=== PATIENT | male | born 1940 | race Caucasian/White ===

== ENCOUNTER 2017-09-09 12:13 | Inpatient (IN) | payer OTHER, MEDICARE ==
[~2017-09-09] VITALS: Ht 182.9 cm; Wt 87.9 kg
[~2017-09-09 12:13] MED LIST: 1-ME1LIQ PO; CARB25TA PO
[2017-09-09 12:14] VITALS: BP 124/78; PULSE 70; RESP 24; TEMP 102.8; O2SAT 90
[2017-09-09 12:37] VITALS: BP 135/66; PULSE 92; RESP 18; TEMP 99.6; O2SAT 95
[2017-09-09] MEDS ORDERED: HYDR-3801 PO (12:44)
[2017-09-09] MEDS ORDERED: LOSA25TA PO (12:44)
[2017-09-09] MEDS ORDERED: CARB25TA9 PO (12:44)
[2017-09-09] MEDS ORDERED: MELO7.5T27 PO (12:44)
[2017-09-09] MEDS ORDERED: ASPI-516 CHEW (12:44)
[2017-09-09] MEDS ORDERED: AMLO10TA2 PO (12:44)
[2017-09-09] MEDS ORDERED: CYCL5TAB PO (12:44)
[2017-09-09] MEDS ORDERED: ACETAMINOPHEN 325 MG TAB PO ONE (12:45)
[2017-09-09] MEDS ORDERED: SODIUM CHLOR 0.9% 1000 ML INJ 1,000 ML IV SCH (12:45)
[2017-09-09] MEDS ORDERED: SODIUM CHLORIDE 0.9% FLUSH 10 ML FLUSH IV FLUSH PRN ×2 (12:45→15:15)
--- NOTE | 2017-09-09 12:53 | PD ---
HPI Chief Complaint: Fever Time Seen by Provider: 12:21 Travel History International Travel<30 days: No Contact w/Intl Traveler<30days: No Traveled to known affect area: No History of Present Illness HPI The patient is a 76-year-old male who presents to the emergency department with his for altered mental status. The states the patient started to have a change in mental status over last weekend. She then states he developed a cough and some nasal congestion. The patient's awakened this morning and noticed that there was nasal polyp for the floor and the chairs removed away from the table, she states it looked like a "tornado hit the living room ". The states the patient has had a change in mental status or last several days, will walk out to the garage is to the bathroom, when he is attempting to use the restroom. The patient does have a history of Parkinson's disease and dementia which seems to progressing. She then noted the patient had a fever upon presentation to the emergency department. The patient is a somewhat limited a poor historian, he is oriented person, but not location. Most of the history is obtained from the who is at bedside. PFSH Past Medical History Arthritis: Yes (OA) Cancer: No Cardiovascular Problems: Yes (HTN) Diabetes: No Endocrine: No Gastrointestinal Disorders: Yes (reflux) Genitourinary: No Hepatitis: No Hiatal Hernia: No Hypertension: Yes Immune Disorder: No Musculoskeletal: Yes (arthritis) Neurologic: Yes (parkinsons) Parkinson's Disease: Yes Psychiatric: No Respiratory: No Thyroid Disease: No Past Surgical History Eye Surgery: Yes (eye surgery) Joint Replacement: Yes (right knee) Oral Surgery: Yes (removal front tooth) Other Surgery: Yes Social History Alcohol Use: Yes Tobacco Use: Yes Substance Use: Yes ([place] ) Allergies-Medications (Allergen,Severity, Reaction): Coded Allergies: No Known Allergies (Unverified Allergy, Unknown, 09/09/17) Reported Meds & Prescriptions Reported Meds & Active Scripts Active Reported Aspirin 81 Mg Chew 81 Mg CHEW DAILY Amlodipine (Amlodipine Besylate) 10 Mg Tab 10 Mg PO DAILY Meloxicam 7.5 Mg Tab 7.5 Mg PO DAILY Flexeril (Cyclobenzaprine HCl) 5 Mg Tab 5 Mg PO HS Losartan (Losartan Potassium) 25 Mg Tab 25 Mg PO DAILY Carbidopa-Levodopa 25-100 Mg Tab 1 Tab PO Q3HR Hydralazine (Hydralazine HCl) 100 Mg Tab 100 Mg PO BID Take with meals Review of Systems Except as stated in HPI: all other systems reviewed are Neg General / Constitutional: Positive: Fever HENT: No: Lightheadedness Cardiovascular: No: Chest Pain or Discomfort Respiratory: Positive: Cough, No: Shortness of Breath Gastrointestinal: No: Nausea, Vomiting, Abdominal Pain Genitourinary: No: Dysuria Musculoskeletal: No: Myalgias Neurologic: Positive: Change in Mentation, Other (history of Parkinson's disease) Physical Exam Narrative GENERAL: Awake, somewhat lethargic, 76-year-old male who appears his stated age. SKIN: Focused skin assessment warm/dry. HEAD: Atraumatic. Normocephalic. EYES: Pupils equal and round. No scleral icterus. No injection or drainage. ENT: No nasal bleeding or discharge. Slightly dry mucous membranes. NECK: Trachea midline. No JVD. CARDIOVASCULAR: Regular rate and rhythm. No murmur appreciated. RESPIRATORY: No accessory muscle use. Diminished in the bases with brows in the right lower lobe. GASTROINTESTINAL: Abdomen soft, non-tender, nondistended. No rebound tenderness. MUSCULOSKELETAL: No obvious deformities. No clubbing. No cyanosis. No edema. NEUROLOGICAL: Awake, somewhat lethargic. Resting tremor noted. Follows simple commands. Oriented to person but not location or year. PSYCHIATRIC: Appears confused. Data Data Last Documented VS Vital Signs Date Time Temp Pulse Resp B/P (MAP) Pulse Ox O2 Delivery O2 Flow Rate FiO2 09/09/17 17:52 94 16 202/96 (131) 95 Room Air 09/09/17 13:59 100.3 Orders Orders Electrocardiogram (09/09/17 12:45) Ammonia (09/09/17 12:45) Complete Blood Count With Diff (09/09/17 12:45) Comprehensive Metabolic Panel (09/09/17 12:45) Creatine Kinase (Cpk) (09/09/17 12:45) Prothrombin Time / Inr (Pt) (09/09/17 12:45) Act Partial Throm Time (Ptt) (09/09/17 12:45) Troponin I (09/09/17 12:45) Thyroid Stimulating Hormone (09/09/17 12:45) Urinalysis - C+S If Indicated (09/09/17 12:45) Lactic Acid Sepsis Protocol (09/09/17 12:45) Blood Culture (09/09/17 12:45) Chest, Single Ap (09/09/17 12:45) Ct Brain W/O Iv Contrast(Rout) (09/09/17 12:45) Blood Glucose (09/09/17 12:45) Ecg Monitoring (09/09/17 12:45) Iv Access Insert/Monitor (09/09/17 12:45) Oximetry (09/09/17 12:45) Sodium Chloride 0.9% Flush (Ns Flush) (09/09/17 12:45) Sodium Chlor 0.9% 1000 Ml Inj (Ns 1000 M (09/09/17 12:45) Acetaminophen (Tylenol) (09/09/17 12:45) Cath For Specimen (09/09/17 12:45) Influenzae A/B Antigen (09/09/17 12:45) CKMB (09/09/17 13:01) CKMB% (09/09/17 13:01) Ceftriaxone Inj (Rocephin Inj) (09/09/17 14:15) Lumbar Puncture (09/09/17 ) Vital Signs (Adult) .On admission (09/09/17 14:15) Notify Radiology (09/09/17 14:15) Csf Cell Count + Differential (09/09/17 14:16) Glucose, Csf (09/09/17 14:16) Total Protein, Csf (09/09/17 14:16) Csf Culture And Gram Stain (09/09/17 14:16) (Hub Use Only)Inp Phy Cons/Ref (09/09/17 ) Csf Hsv I/Ii Dna,Pcr (09/09/17 14:48) Acyclovir Inj (Zovirax Inj) (09/09/17 15:00) Ceftriaxone Inj (Rocephin Inj) (09/10/17 02:00) Vancomycin Consult Pharmacy (Vancomycin (09/09/17 15:15) Admit To Inpatient (09/09/17 ) Vital Signs (Adult) Q4H (09/09/17 15:14) Activity Bed Rest (09/09/17 15:14) Bedside Glucose ZANE.CSUGAR (09/09/17 15:14) Diet Heart Healthy (09/09/17 Dinner) Sodium Chlor 0.9% 1000 Ml Inj (Ns 1000 M (09/09/17 15:14) Sodium Chloride 0.9% Flush (Ns Flush) (09/09/17 15:15) Sodium Chloride 0.9% Flush (Ns Flush) (09/09/17 21:00) Comprehensive Metabolic Panel (09/10/17 06:00) Complete Blood Count With Diff (09/10/17 06:00) Pt Request For Service (09/09/17 15:14) Scd Bilateral/Knee High ZANE.BID (09/09/17 15:14) Naloxone Inj (Narcan Inj) (09/09/17 15:15) Docusate Sodium-Senna (Marisabel-Colace) (09/09/17 21:00) Magnesium Hydroxide Liq (Milk Of Magnesi (09/09/17 15:15) Sennosides (Senokot) (09/09/17 15:15) Bisacodyl Supp (Dulcolax Supp) (09/09/17 15:15) Lactulose Liq (Lactulose Liq) (09/09/17 15:15) Inpatient Certification (09/09/17 ) Consult Neurology (09/09/17 ) Amlodipine (Norvasc) (09/10/17 09:00) Hydralazine (Apresoline) (09/09/17 21:00) Losartan (Cozaar) (09/10/17 09:00) Carbidopa-Levodopa 25-100 Mg (Sinemet 25 (09/09/17 22:00) (Hub Use Only)Inp Phy Cons/Ref (09/09/17 ) Acyclovir Inj (Zovirax Inj) (09/10/17 01:00) Drug Screen, Random Urine (09/09/17 15:39) Vancomycin Inj (Vancomycin Inj) (09/09/17 17:00) Vital Signs (Adult) .As directed (09/09/17 16:06) Activity Bed Rest (09/09/17 16:06) Notify Radiology (09/09/17 16:06) ^ Encourage Fluids (09/09/17 16:06) Anticoagulant Alert (09/09/17 16:06) Labs Laboratory Tests Test 09/09/17 13:00 1/12/18 13:01 09/09/17 13:07 09/09/17 15:57 Urine Color YELLOW Urine Turbidity HAZY Urine pH 5.5 Urine Specific [place] 1.024 Urine Protein 30 mg/dL Urine Glucose (UA) NEG mg/dL Urine Ketones TRACE mg/dL Urine Occult Blood NEG Urine Nitrite NEG Urine Bilirubin NEG Urine Urobilinogen 2.0 MG/DL Urine Leukocyte Esterase NEG Urine RBC 1 /hpf Urine WBC 2 /hpf Urine Hyaline Casts 6 /lpf Urine Mucus FEW /lpf Microscopic Urinalysis Comment CATH-CULT NOT IND White Blood Count 7.4 TH/MM3 Red Blood Count 3.82 MIL/MM3 Hemoglobin 11.8 GM/DL Hematocrit 34.4 % Mean Corpuscular Volume 90.1 FL Mean Corpuscular Hemoglobin 30.9 PG Mean Corpuscular Hemoglobin Concent 34.3 % Red Cell Distribution Width 13.5 % Platelet Count 182 TH/MM3 Mean Platelet Volume 8.1 FL Neutrophils (%) (Auto) 87.2 % Lymphocytes (%) (Auto) 6.5 % Monocytes (%) (Auto) 5.8 % Eosinophils (%) (Auto) 0.1 % Basophils (%) (Auto) 0.4 % Neutrophils # (Auto) 6.5 TH/MM3 Lymphocytes # (Auto) 0.5 TH/MM3 Monocytes # (Auto) 0.4 TH/MM3 Eosinophils # (Auto) 0.0 TH/MM3 Basophils # (Auto) 0.0 TH/MM3 CBC Comment DIFF FINAL Differential Comment Prothrombin Time 10.8 SEC Prothromb Time International Ratio 1.1 RATIO Activated Partial Thromboplast Time 27.0 SEC Blood Urea Nitrogen 23 MG/DL Creatinine 1.63 MG/DL Random Glucose 88 MG/DL Total Protein 7.2 GM/DL Albumin 3.8 GM/DL Calcium Level 8.4 MG/DL Alkaline Phosphatase 66 U/L Aspartate Amino Transf (AST/SGOT) 32 U/L Alanine Aminotransferase (ALT/SGPT) 28 U/L Total Bilirubin 0.6 MG/DL Sodium Level 142 MEQ/L Potassium Level 3.9 MEQ/L Chloride Level 106 MEQ/L Carbon Dioxide Level 27.8 MEQ/L Anion Gap 8 MEQ/L Estimat Glomerular Filtration Rate 41 ML/MIN Total Creatine Kinase 510 U/L Creatine Kinase MB 2.0 NG/ML Creatine Kinase MB % 0.4 % Troponin I 0.03 NG/ML Thyroid Stimulating Hormone 3rd Gen 0.958 uIU/ML Lactic Acid Level 1.2 mmol/L Ammonia 35 MCMOL/L CSF Volume (Tube 1) 2.9 ML CSF Supernatant Color (tube 1) CLEAR CSF Gross Blood (Tube 1) 0 CSF Volume (Tube 2) 3.2 ML CSF Supernatant Color (tube 2) CLEAR CSF Gross Blood (Tube 2) 0 CSF Volume (Tube 3) 2.5 ML CSF Supernatant Color (tube 3) CLEAR CSF Gross Blood (Tube 3) 0 CSF Volume (Tube 4) 3.5 ML CSF Supernatant Color (tube 4) CLEAR CSF Gross Blood (Tube 4) 0 CSF WBC (Tube 4) 3 /MM3 CSF RBC (Tube 4) 3 /MM3 CSF Neutrophils 1 % CSF Lymphocytes 0 % CSF Glucose 53 MG/DL CSF Total Protein 60.7 MG/DL MDM Medical Decision Making Medical Screen Exam Complete: Yes Emergency Medical Condition: Yes Medical Record Reviewed: Yes Interpretation(s) EKG reveals sinus rhythm with frequent supraventricular premature complex. RSR prime in V1 with QRS of 122 ms, right bundle branch block. Differential Diagnosis Differential diagnosis includes sepsis, delirium, pneumonia, UTI, hyponatremia, subdural hemorrhage, CVA, intracranial hemorrhage, medication side effect. Narrative Course IV was established, labs are drawn and sent, and the patient was placed on cardiac telemetry monitoring and continuous pulse oximetry monitoring. EKG was ordered and interpreted. Chest x-ray was obtained. Lactic acid blood culture were sent to lab. The patient was administered Tylenol orally and IV fluids. Influenza screen was sent to lab. The patient's white count is unremarkable. Lactic acid is within normal limits. Creatinine is mildly elevated. Chest x- rays negative, patient did initially have a fever one or 2.3 and O2 sat of 90%. UA is unremarkable. The patient does have delirium with altered mental status and febrile illness, this could be viral etiology versus meningitis. Therefore, consult was placed through invasive radiology for lumbar puncture the patient was covered with Rocephin 2 g intravenously, vancomycin 1 g intravenously, and acyclovir 10 mg/kg intravenously. Blood cultures are pending , the patient will require admission until blood cultures are negative and micro -studies from CSF are negative. Therefore, the patient will be admitted to the on-call medical service. Sepsis Criteria SIRS Criteria (2 or more): Temp > 100.9 or < 96.8, RR > 20 or PaCO2 < 32 Criteria Outcome: Meets SIRS criteria Physician Communication Physician Communication The [facility] [employer] I discussed patient with Dr. Serrano who agrees with admission. Diagnosis Primary Impression: Febrile illness Additional Impressions: Delirium Altered mental status Qualified Codes: R41.0 - Disorientation, unspecified SIRS (systemic inflammatory response syndrome) Admitting Information Admitting Physician Requests: Admit Condition: Stable Alec White MD Sep 09, 2017 12:53
[2017-09-09 13:00] VITALS: PULSE 85; RESP 18; O2SAT 94
[2017-09-09 13:25] LABS: AUTOMATED NEUTROPHIL # 6.5 TH/MM3 (1.8-7.7); BASOPHIL % 0.4 % (0.0-2.0); EOSINOPHIL % 0.1 % (0.0-4.0); HEMATOCRIT 34.4 % (39.0-51.0); HEMOGLOBIN 11.8 GM/DL (13.0-17.0); LYMPH % 6.5 % (9.0-44.0); LYMPHOCYTE # 0.5 TH/MM3 (1.0-4.8); MEAN CELL VOLUME 90.1 FL (80.0-100.0); MEAN CORPUSCULAR HEMOGLOBIN 30.9 PG (27.0-34.0); MEAN CORPUSCULAR HGB CONC 34.3 % (32.0-36.0); MEAN PLATELET VOLUME 8.1 FL (7.0-11.0); MONO % 5.8 % (0.0-8.0); MONOCYTE # 0.4 TH/MM3 (0-0.9); NEUT % 87.2 % (16.0-70.0); PLATELET COUNT 182 TH/MM3 (150-450); RED BLOOD COUNT 3.82 MIL/MM3 (4.50-5.90); RED CELL DISTRIBUTION WIDTH 13.5 % (11.6-17.2); WHITE BLOOD COUNT 7.4 TH/MM3 (4.0-11.0)
[2017-09-09 13:34] LABS: INTERNATIONAL NORMALIZED RATIO 1.1 RATIO; PROTHROMBIN TIME - PATIENT 10.8 SEC (9.8-11.6)
[2017-09-09 13:38] LABS: ALBUMIN 3.8 GM/DL (3.4-5.0); ALT (GPT) 28 U/L (12-78); AST (GOT) 32 U/L (15-37); BICARBONATE 27.8 MEQ/L (21.0-32.0); BLOOD UREA NITROGEN 23 MG/DL (7-18); CALCIUM 8.4 MG/DL (8.5-10.1); CHLORIDE 106 MEQ/L (98-107); CREATININE 1.63 MG/DL (0.60-1.30); GLOMERULAR FILTRATION RATE 41 ML/MIN (>89); GLUCOSE,RANDOM 88 MG/DL (74-106); SODIUM (NA) 142 MEQ/L (136-145)
[2017-09-09 13:48] LABS: ALKALINE PHOSPHATASE 66 U/L (45-117); TOTAL BILIRUBIN ADULT 0.6 MG/DL (0.2-1.0); TOTAL PROTEIN 7.2 GM/DL (6.4-8.2); TROPONIN I 0.03 NG/ML (0.02-0.05)
[2017-09-09 13:48] LABS: BILIRUBIN, URINE NEG (NEG); BLOOD, URINE NEG (NEG); GLUCOSE,URINE NEG (NEG); HYALINE CAST, URINE 6 /lpf (RARE); KETONE, URINE TRACE mg/dL (NEG); MUCUS URINE FEW /lpf (OCC); NITRITE,URINE NEG (NEG); PH, URINE 5.5 (5.0-8.5); URINE COLOR YELLOW (YELLW/STRAW); URINE LEUKOCYTE ESTERASE NEG (NEG)
[2017-09-09 13:59] VITALS: TEMP 100.3
--- NOTE | 2017-09-09 14:02 | RADRPT ---
EXAM DATE/TIME: 09/09/2017 13:32 [facility] COMPARISON: No previous studies available for comparison. INDICATIONS : Disoriented. Altered mental status. RADIATION DOSE: 56.35 CTDIvol (mGy) MEDICAL HISTORY : Parkinson's. Cardiovascular disease Hypertension. SURGICAL HISTORY : None. ENCOUNTER: Initial ACUITY: 3 days PAIN SCALE: 0/10 LOCATION: cranial TECHNIQUE: Multiple contiguous axial images were obtained of the head. Using automated exposure control and adj ustment of the mA and/or kV according to patient size, radiation dose was kept as low as reasonably a chievable to obtain optimal diagnostic quality images. DICOM format image data is available electro nically for review and comparison. FINDINGS: There is a tiny nonacute lacunar infarct in the right basal ganglia. The brain is also are symmetric and unremarkable. No evidence of mass or hemorrhage. Nothing to suggest acute infarction. Extracrania l structures are benign and intact. CONCLUSION: No acute intracranial findings. Rashad Morgan MD on September 09, 2017 at 13:57 Board Certified Radiologist. This report was verified electronically.
--- NOTE | 2017-09-09 14:02 | RADRPT ---
EXAM DATE/TIME: 09/09/2017 13:05 [facility] COMPARISON: No previous studies available for comparison. INDICATIONS : Fever with altered mental status. MEDICAL HISTORY : Athritis, Hypertension, GERD, Parkinsons. SURGICAL HISTORY : Right knee replacement. ENCOUNTER: Initial ACUITY: 1 day PAIN SCORE: 0/10 LOCATION: Bilateral chest FINDINGS: A single view of the chest demonstrates the lungs to be symmetrically aerated without evidence of mas s, infiltrate or effusion. The cardiomediastinal contours are unremarkable. Osseous structures are intact. CONCLUSION: 1. No acute cardiopulmonary disease. Isaac Gary MD on September 09, 2017 at 13:59 Board Certified Radiologist. This report was verified electronically.
[2017-09-09] MEDS ORDERED: cefTRIAXone INJ 2,000 MG in SODIUM CHLORIDE 0.9% INJ 100 ML IV ONE (14:15)
[2017-09-09] MEDS ORDERED: VANCOMYCIN INJ 200 ML IV SCH (15:00)
[2017-09-09] MEDS ORDERED: ACYCLOVIR IV ONE (15:00)
[2017-09-09] MEDS ORDERED: SODIUM CHLORIDE 0.9% IV ONE (15:00)
[2017-09-09] MEDS ORDERED: SENNOSIDES 8.6 MG TAB PO PRN (15:15)
[2017-09-09] MEDS ORDERED: NALOXONE HCL 0.4 MG/ML AMP IV PUSH PRN (15:15)
[2017-09-09] MEDS ORDERED: MAGNESIUM HYDROXIDE SUSP 30 ML CUP PO PRN (15:15)
[2017-09-09] MEDS ORDERED: Vancomycin Consult Pharmacy 1 EA OTHER SCH (15:15)
[2017-09-09] MEDS ORDERED: BISACODYL 10 MG SUPP RECTAL PRN (15:15)
[2017-09-09] MEDS ORDERED: LACTULOSE SYRUP 20 GM/30 ML CUP PO PRN (15:15)
--- NOTE | 2017-09-09 15:27 | HHI.HP ---
[facility] Admission Diagnosis Diagnoses: Travel History International Travel<30 Days: No Contact w/Intl Traveler <30 Da: No Traveled to Known Affected Are: No History of Present Illness 76-year-old male with a past medical history significant for hypertension and Parkinson's disease was brought to the emergency department by his for evaluation of altered mental status. The patient's reports that he became disoriented and confused starting on Tuesday. She states he had visual hallucinations and believed that he saw a cow in the front yard. The patient's condition gradually worsened until this morning his found him surrounded by closets and worse that he had emptied out and thrown everything on the floor. She states he could not tell her what he was looking for why he was doing this. She states he did not know where he was or what year it was. She reports he had a fever to 102 axillary at home this morning. She reports he has had a cough that was severe yesterday but has since improved. Vital signs on arrival: Temperature 102.8, pulse 70, respiratory rate 24, BP 124/78, pulse ox 90% on room air. Head CT negative for acute process. Chest x-ray negative. No leukocytosis. Ammonia mildly elevated at 35. Review of Systems (Obtained from patient's ) Positive fever/chills Denies blurry vision, otorrhea, rhinorrhea Denies sore throat and cough No chest pain, palpitations, shortness of breath No abdominal pain Denies constipation/diarrhea/nausea/vomiting Denies muscle pain/weakness. Tremor at baseline No rashes Past Family Social History Past Medical History Hypertension Osteoarthritis Parkinson's disease Past Surgical History Hernia repair times 2 Right knee replacement Reported Medications Reported Meds & Active Scripts Active Reported Aspirin 81 Mg Chew 81 Mg CHEW DAILY Amlodipine (Amlodipine Besylate) 10 Mg Tab 10 Mg PO DAILY Meloxicam 7.5 Mg Tab 7.5 Mg PO DAILY Flexeril (Cyclobenzaprine HCl) 5 Mg Tab 5 Mg PO HS Losartan (Losartan Potassium) 25 Mg Tab 25 Mg PO DAILY Carbidopa-Levodopa 25-100 Mg Tab 1 Tab PO Q3HR Hydralazine (Hydralazine HCl) 100 Mg Tab 100 Mg PO BID Take with meals Allergies: Coded Allergies: No Known Allergies (Unverified Allergy, Unknown, 09/09/17) Family History Mother with CAD Social History Remote history of smoking, quit in his 20s. 6 ounces of wine daily. No illicit drugs. Physical Exam Vital Signs Vital Signs Date Time Temp Pulse Resp B/P (MAP) Pulse Ox O2 Delivery O2 Flow Rate FiO2 09/09/17 13:59 100.3 09/09/17 13:00 85 18 94 Room Air 09/09/17 12:37 96 18 93 Room Air 09/09/17 12:37 99.6 92 18 135/66 (89) 95 Room Air 09/09/17 12:14 102.8 70 24 124/78 (93) 90 Physical Exam GENERAL: male lying in bed SKIN: No rashes, ecchymoses or lesions. Cool and dry. HEAD: Atraumatic. Normocephalic. No temporal or scalp tenderness. EYES: Pupils equal round and reactive. Extraocular motions intact. No scleral icterus. No injection or drainage. ENT: Nose without bleeding, purulent drainage or septal hematoma. Throat without erythema, tonsillar hypertrophy or exudate. Uvula midline. Airway patent. NECK: Trachea midline. No JVD or lymphadenopathy. Supple, nontender, no meningeal signs. Full range of motion of the neck without pain. CARDIOVASCULAR: Regular rate and rhythm without murmurs, gallops, or rubs. RESPIRATORY: Clear to auscultation. Breath sounds equal bilaterally. No wheezes , rales, or rhonchi. GASTROINTESTINAL: Abdomen soft, non-tender, nondistended. No hepato-splenomegaly , or palpable masses. No guarding. MUSCULOSKELETAL: Extremities without clubbing, cyanosis, or edema. No joint tenderness, effusion, or edema noted. No calf tenderness. NEUROLOGICAL: Awake and alert. Cranial nerves II through XII intact. Motor and sensory grossly within normal limits. Five out of 5 muscle strength in all muscle groups. Normal speech. Lip and hand tremor. A&O 3. Laboratory Laboratory Tests Test 09/09/17 13:00 09/09/17 13:01 09/09/17 13:07 Urine Color YELLOW Urine Turbidity HAZY Urine pH 5.5 Urine Specific [place] 1.024 Urine Protein 30 Urine Glucose (UA) NEG Urine Ketones TRACE Urine Occult Blood NEG Urine Nitrite NEG Urine Bilirubin NEG Urine Urobilinogen 2.0 Urine Leukocyte Esterase NEG Urine RBC 1 Urine WBC 2 Urine Hyaline Casts 6 Urine Mucus FEW Microscopic Urinalysis Comment CATH-CULT NOT IND White Blood Count 7.4 Red Blood Count 3.82 Hemoglobin 11.8 Hematocrit 34.4 Mean Corpuscular Volume 90.1 Mean Corpuscular Hemoglobin 30.9 Mean Corpuscular Hemoglobin Concent 34.3 Red Cell Distribution Width 13.5 Platelet Count 182 Mean Platelet Volume 8.1 Neutrophils (%) (Auto) 87.2 Lymphocytes (%) (Auto) 6.5 Monocytes (%) (Auto) 5.8 Eosinophils (%) (Auto) 0.1 Basophils (%) (Auto) 0.4 Neutrophils # (Auto) 6.5 Lymphocytes # (Auto) 0.5 Monocytes # (Auto) 0.4 Eosinophils # (Auto) 0.0 Basophils # (Auto) 0.0 CBC Comment DIFF FINAL Differential Comment Prothrombin Time 10.8 Prothromb Time International Ratio 1.1 Activated Partial Thromboplast Time 27.0 Blood Urea Nitrogen 23 Creatinine 1.63 Random Glucose 88 Total Protein 7.2 Albumin 3.8 Calcium Level 8.4 Alkaline Phosphatase 66 Aspartate Amino Transf (AST/SGOT) 32 Alanine Aminotransferase (ALT/SGPT) 28 Total Bilirubin 0.6 Sodium Level 142 Potassium Level 3.9 Chloride Level 106 Carbon Dioxide Level 27.8 Anion Gap 8 Estimat Glomerular Filtration Rate 41 Total Creatine Kinase 510 Creatine Kinase MB 2.0 Creatine Kinase MB % 0.4 Troponin I 0.03 Thyroid Stimulating Hormone 3rd Gen 0.958 Lactic Acid Level 1.2 Ammonia 35 Date/Time Source Procedure Growth Status 09/09/17 13:05 Blood Peripheral Aerobic Blood Culture Pending Received 09/09/17 13:05 Blood Peripheral Anaerobic Blood Culture Pending Received 09/09/17 13:00 Nasal Aspirate Influenza Types A,B Antigen (ELIF) - Final NEGATIVE FOR FLU A AND B ANTIGEN.... Complete Result Diagram: 09/09/17 1301 09/09/17 1301 Caprini VTE Risk Assessment Caprini VTE Risk Assessment: Mod/High Risk (score >= 2) Caprini Risk Assessment Model Point Value = 1 Point Value = 2 Point Value = 3 Point Value = 5 Age 41-60 Minor surgery BMI > 25 kg/m2 Swollen legs Varicose veins or History of unexplained or recurrent spontaneous Oral contraceptives or hormone replacement Sepsis (< 1 month) Serious lung disease, including pneumonia (< 1 month) Abnormal pulmonary function Acute myocardial infarction Congestive heart failure (< 1 month) History of inflammatory bowel disease Medical patient at bed rest Age 61-74 Arthroscopic surgery Major open surgery (> 45 min) Laparoscopic surgery (> 45 min) Malignancy Confined to bed (> 72 hours) Immobilizing plaster cast Central venous access Age >= 75 History of VTE Family history of VTE Factor V Leiden Prothrombin [id number] Lupus anticoagulant Anticardiolipin antibodies Elevated serum homocysteine Heparin-induced thrombocytopenia Other congenital or acquired thrombophilia Stroke (< 1 month) Elective arthroplasty Hip, pelvis, or leg fracture Acute spinal cord injury (< 1 month) Prophylaxis Regimen Total Risk Factor Score Risk Level Prophylaxis Regimen 0-1 Low Early ambulation 2 Moderate Order ONE of the following: *Sequential Compression Device (SCD) *Heparin 5000 units SQ BID 3-4 Higher Order ONE of the following medications: *Heparin 5000 units SQ TID *Enoxaparin/Lovenox 40 mg SQ daily (WT < 150 kg, CrCl > 30 mL/min) *Enoxaparin/Lovenox 30 mg SQ daily (WT < 150 kg, CrCl > 10-29 mL/min) *Enoxaparin/Lovenox 30 mg SQ BID (WT < 150 kg, CrCl > 30 mL/min) AND/OR *Sequential Compression Device (SCD) 5 or more Highest Order ONE of the following medications: *Heparin 5000 units SQ TID (Preferred with Epidurals) *Enoxaparin/Lovenox 40 mg SQ daily (WT < 150 kg, CrCl > 30 mL/min) *Enoxaparin/Lovenox 30 mg SQ daily (WT < 150 kg, CrCl > 10-29 mL/min) *Enoxaparin/Lovenox 30 mg SQ BID (WT < 150 kg, CrCl > 30 mL/min) AND *Sequential Compression Device (SCD) Assessment and Plan Assessment and Plan Assessment/plan: 1. Altered mental status Unclear etiology Head CT within normal limits, chest x-ray and UA negative for infection Ammonia mildly elevated at 35 UDS penidng Cannot rule out meningitis LP pending Cover for meningitis with vancomycin, Rocephin and acyclovir until LP results Consult neurology, appreciate recommendations 2. Parkinson's disease Continue home carbidopa-levodopa May be contributing to altered mental status Neurology consulted as above 3. Hypertension Continue home amlodipine, hydralazine and losartan 4. Renal insufficiency Creatinine 1.63, baseline unknown Monitor renal function Suspect this is chronic FEN Heart healthy diet NS at 100 cc/hr Electrolytes: monitor and replete prn SCDs. Holding pharmacologic anticoagulation for LP Physician Certification 2 Midnight Certification Type: Admission for Inpatient Services Order for Inpatient Services The services are ordered in accordance with Medicare regulations or non- Medicare payer requirements, as applicable. In the case of services not specified as inpatient-only, they are appropriately provided as inpatient services in accordance with the 2-midnight benchmark. Estimated LOS (days): 2 2 days is the estimated time the patient will need to remain in the hospital, assuming treatment plan goals are met and no additional complications. Post-Hospital Plan: Not yet determined Abbey Serrano MD Sep 09, 2017 15:27
--- NOTE | 2017-09-09 16:08 | PD.RAD ---
Post Procedure Progress Note Pre Procedure Diagnosis: (1) Altered mental status (2) Febrile illness Post Procedure Diagnosis: (1) Altered mental status (2) Febrile illness Procedure Date: Sep 09, 2017 Supervising Radiologist: Rashad Morgan Plan of Activity Patient to Unit: Nursing Unit Patient Condition: Fair See PACS Report for procedural detail/treatment Spinal Procedure Lumbar Puncture L3-L4 Fluid Removal (CCs): 13 Fluid Description: Clear Puncture Time: 16:00 Rashad Morgan MD Sep 09, 2017 16:08
--- NOTE | 2017-09-09 16:16 | RADRPT ---
EXAM DATE/TIME: 09/09/2017 15:25 [facility] COMPARISON: No previous studies available for comparison. INDICATIONS : Patient with history of Parkinson's disease and ams in need of lumbar puncture. MEDICAL HISTORY : 1.Parkinson's disease 2.Osteoarthritis 3.GERD SURGICAL HISTORY : 1.Eye surgery 2.Right knee 3.Oral surgery ENCOUNTER: Initial ACUITY: 1 day PAIN SCORE: 0/10 LUMBAR PUNCTURE TIME: 1557 hours FLUORO TIME: 0.9 minutes IMAGE SERIES: ACCESS LEVEL: L3-4 FLUID: 12.5 cc of clear CSF was collected and sent to the laboratory for analysis. PROCEDURE : 1. Fluoroscopic guided lumbar puncture. The risks, benefits and alternatives to the procedure were explained and verbal and written consent w as obtained. The site was prepped in sterile fashion. Full sterile technique was used, including ca p, mask, sterile gloves and gown and a large sterile sheet. Hand hygiene and 2% chlorhexidine and/or betadine/alcohol prep was utilized per protocol for cutaneous antisepsis. The skin and subcutaneous tissues were infiltrated with local anesthetic solution. With fluoroscopic guidance the lumbar thecal sac was punctured at the level above. The fluid describ ed above was removed without difficulty. The patient tolerated the procedure well and there were no complications. CONCLUSION: Uncomplicated fluoroscopically guided lumbar puncture. Rashad Morgan MD on September 09, 2017 at 16:13 Board Certified Radiologist. This report was verified electronically.
[2017-09-09] MEDS ORDERED: VANCOMYCIN 1,500 MG/NS 500 ML IV ONE ×2 (17:00)
[2017-09-09 17:04] LABS: TOTAL PROTEIN,CSF 60.7 MG/DL (15.0-45.0)
[2017-09-09] MEDS: SODIUM CHLOR 0.9% 1000 ML INJ 1,000 ML IV SCH (17:22)
[2017-09-09 17:52] VITALS: BP 202/96; PULSE 94; RESP 16; O2SAT 95
[2017-09-09 18:08] LABS: SUPERNATE COLOR TUBE #1 CLEAR (CLEAR); VOLUME TUBE # 1 2.9 ML
[2017-09-09 18:09] LABS: CSF LYMPHOCYTES 0 %; RBC TUBE #4 3 /MM3; WBC TUBE #4 3 /MM3 (0-10)
[2017-09-09] MEDS: DOCUSATE SODIUM 50 MG/SENNA 8.6 MG TAB PO SCH (21:00)
[2017-09-09 21:30] VITALS: BP 113/57; PULSE 60; RESP 19; TEMP 98; O2SAT 97
[2017-09-09] MEDS: SODIUM CHLORIDE 0.9% FLUSH 10 ML FLUSH IV FLUSH SCH (22:13)
[2017-09-09] MEDS: CARBIDOPA/LEVODOPA 25 MG/100 MG TAB PO SCH (22:14)
[2017-09-09] MEDS: hydrALAZINE HCL 100 MG TAB PO SCH (22:14)
[2017-09-10] VITALS (10 sets, daily range): BP systolic 118–169; BP diastolic 52–92; PULSE 56–114; RESP 18–23; TEMP 97.8–102.9; O2SAT 84–96
[2017-09-10] MEDS ORDERED: QUEtiapine FUMARATE 25 MG TAB PO ONE (00:30)
[2017-09-10] MEDS ORDERED: ACETAMINOPHEN 650 MG SUPP RECTAL ONE (01:15)
[2017-09-10] MEDS ORDERED: ACETAMINOPHEN 325 MG TAB PO ONE (01:15)
[2017-09-10] MEDS: SODIUM CHLOR 0.9% 1000 ML INJ 1,000 ML IV SCH ×3 (01:23→21:38)
[2017-09-10] MEDS ORDERED: VANCOMYCIN INJ 1,200 MG in SODIUM CHLOR 0.9% 250 ML INJ 250 ML IV SCH (02:00)
[2017-09-10] MEDS ORDERED: cefTRIAXone INJ 2,000 MG in SODIUM CHLORIDE 0.9% INJ 100 ML IV SCH (02:00)
[2017-09-10 02:26] LABS: AUTOMATED NEUTROPHIL # 4.9 TH/MM3 (1.8-7.7); BASOPHIL % 0.4 % (0.0-2.0); EOSINOPHIL % 0.2 % (0.0-4.0); HEMATOCRIT 30.6 % (39.0-51.0); HEMOGLOBIN 10.4 GM/DL (13.0-17.0); LYMPH % 9.9 % (9.0-44.0); LYMPHOCYTE # 0.6 TH/MM3 (1.0-4.8); MEAN CELL VOLUME 89.5 FL (80.0-100.0); MEAN CORPUSCULAR HEMOGLOBIN 30.4 PG (27.0-34.0); MEAN PLATELET VOLUME 7.8 FL (7.0-11.0); MONO % 6.7 % (0.0-8.0); MONOCYTE # 0.4 TH/MM3 (0-0.9); NEUT % 82.8 % (16.0-70.0); PLATELET COUNT 156 TH/MM3 (150-450); RED BLOOD COUNT 3.42 MIL/MM3 (4.50-5.90); RED CELL DISTRIBUTION WIDTH 13.5 % (11.6-17.2); WHITE BLOOD COUNT 5.9 TH/MM3 (4.0-11.0)
[2017-09-10] MEDS: SODIUM CHLORIDE 0.9% IV SCH ×3 (02:41→16:32)
[2017-09-10] MEDS: ACYCLOVIR IV SCH ×3 (02:41→16:32)
[2017-09-10 02:53] LABS: ALBUMIN 3.2 GM/DL (3.4-5.0); ALT (GPT) 9 U/L (12-78); AST (GOT) 29 U/L (15-37); BICARBONATE 25.3 MEQ/L (21.0-32.0); BLOOD UREA NITROGEN 23 MG/DL (7-18); CHLORIDE 108 MEQ/L (98-107); CREATININE 1.39 MG/DL (0.60-1.30); GLOMERULAR FILTRATION RATE 50 ML/MIN (>89); GLUCOSE,RANDOM 96 MG/DL (74-106); SODIUM (NA) 143 MEQ/L (136-145)
[2017-09-10 02:56] LABS: ALKALINE PHOSPHATASE 56 U/L (45-117); TOTAL BILIRUBIN ADULT 0.4 MG/DL (0.2-1.0); TOTAL PROTEIN 6.5 GM/DL (6.4-8.2)
[2017-09-10] MEDS: CARBIDOPA/LEVODOPA 25 MG/100 MG TAB PO SCH ×3 (05:13→21:36)
--- NOTE | 2017-09-10 08:50 | RADRPT ---
EXAM DATE/TIME: 09/10/2017 08:33 [facility] COMPARISON: CHEST SINGLE AP, September 09, 2017, 13:05. INDICATIONS : Cough, congestion, and shortness of breath. MEDICAL HISTORY : Athritis, Hypertension, GERD, Parkinsons. SURGICAL HISTORY : None. ENCOUNTER: Subsequent ACUITY: 2 days PAIN SCORE: Non-responsive. LOCATION: chest FINDINGS: Single AP view of the chest. Patchy right perihilar pulmonary opacity. The left lung is clear. Cardio mediastinal silhouette within normal limits. No evidence of pleural effusion or pneumothorax. Bilater al high riding humeral heads suggesting rotator cuff tendon insufficiency. CONCLUSION: Patchy mild right perihilar pulmonary opacity indicating atelectasis versus mild consolid ation. Chente Lo MD on September 10, 2017 at 8:45 Board Certified Radiologist. This report was verified electronically.
[2017-09-10] MEDS: SODIUM CHLORIDE 0.9% FLUSH 10 ML FLUSH IV FLUSH SCH ×2 (09:00→21:31)
[2017-09-10] MEDS ORDERED: ACETAMINOPHEN 325 MG TAB PO PRN (09:15)
[2017-09-10] MEDS: hydrALAZINE HCL 100 MG TAB PO SCH ×2 (09:23→21:36)
[2017-09-10] MEDS: LOSARTAN 25 MG TAB PO SCH (09:23)
[2017-09-10] MEDS: DOCUSATE SODIUM 50 MG/SENNA 8.6 MG TAB PO SCH ×2 (09:24→21:36)
[2017-09-10] MEDS ORDERED: Vancomycin Consult Pharmacy 1 EA OTHER SCH (12:30)
[2017-09-10] MEDS ORDERED: VANCOMYCIN INJ 1,000 MG in SODIUM CHLOR 0.9% 250 ML INJ 250 ML IV SCH (14:00)
[2017-09-10] MEDS: PIPERACIL-TAZO 4.5 GM PREMIX 100 ML IV SCH ×2 (15:24→21:30)
--- NOTE | 2017-09-10 16:46 | EKG ---
Date Performed: 09/09/2017 Time Performed: 13:04:34 PTAGE: 76 years EKG: Sinus rhythm WITH FREQUENT SUPRAVENTRICULAR PREMATURE COMPLEXES RIGHT BUNDLE BRANCH BLOCK Compared to previous tr acing Right bundle branch block is new ABNORMAL ECG PREVIOUS TRACING : 11/09/2013 06.54 DOCTOR: Dani Jones Interpretating Date/Time 09/10/2017 16:44:48
[2017-09-10] MEDS: VANCOMYCIN 1,500 MG/NS 500 ML IV SCH ×2 (17:40)
--- NOTE | 2017-09-10 17:42 | HHI.PR ---
Subjective Remarks Deferred entry - patient seen earlier at 1 PM. Iron reported the patient is febrile. Reports of diarrhea, nausea or vomiting. Patient is lethargic and unable to provide any history at this time. Objective Vitals Vital Signs Date Time Temp Pulse Resp B/P (MAP) Pulse Ox O2 Delivery O2 Flow Rate FiO2 09/10/17 15:17 98.8 99 20 141/65 (90) 93 09/10/17 11:04 102.9 09/10/17 08:07 90 Nasal Cannula 4.00 09/10/17 04:00 97.8 64 23 118/52 (74) 93 09/10/17 04:00 107 09/10/17 00:20 107 09/10/17 00:00 102.6 99 21 169/92 (117) 94 09/09/17 21:30 98.0 60 19 113/57 (75) 97 09/09/17 21:00 Room Air 09/09/17 20:34 09/09/17 17:52 94 16 202/96 (131) 95 Room Air I/O 09/09/17 09/09/17 09/09/17 09/10/17 09/10/17 09/10/17 07:00 15:00 23:00 07:00 15:00 23:00 Intake Total 200 ml Output Total 300 ml Balance -100 ml Intake Oral 200 ml Output Urine Total 300 ml # Voids 3 # Bowel Movements 0 Result Diagram: 09/10/17 0210 09/10/17 0210 Imaging Last Impressions Chest X-Ray 09/10/17 0000 Signed Impressions: Service Date/Time: Sunday, September 10, 2017 08:33 - CONCLUSION: Patchy mild right perihilar pulmonary opacity indicating atelectasis versus mild consolidation. Chente Lo MD Head CT 09/09/17 1245 Signed Impressions: Service Date/Time: Saturday, September 09, 2017 13:32 - CONCLUSION: No acute intracranial findings. Rashad Morgan MD Lumbar Puncture Fluoroscopy 09/09/17 0000 Signed Impressions: Service Date/Time: Saturday, September 09, 2017 15:25 - CONCLUSION: Uncomplicated fluoroscopically guided lumbar puncture. Rashad Morgan MD Objective Remarks GENERAL: male lying in bed, lethargic, mild respiratory distress SKIN: No rashes, ecchymoses or lesions. Cool and dry. HEAD: Atraumatic. Normocephalic. No temporal or scalp tenderness. EYES: Pupils equal round and reactive. Extraocular motions intact. No scleral icterus. No injection or drainage. ENT: Nose without bleeding, purulent drainage or septal hematoma. Throat without erythema, tonsillar hypertrophy or exudate. Uvula midline. Airway patent. NECK: Trachea midline. No JVD or lymphadenopathy. Supple, nontender, no meningeal signs. Full range of motion of the neck without pain. CARDIOVASCULAR: Regular rate and rhythm without murmurs, gallops, or rubs. RESPIRATORY: Clear to auscultation. Breath sounds equal bilaterally. No wheezes , rales, or rhonchi. GASTROINTESTINAL: Abdomen soft, non-tender, nondistended. No hepato-splenomegaly , or palpable masses. No guarding. MUSCULOSKELETAL: Extremities without clubbing, cyanosis, or edema. No joint tenderness, effusion, or edema noted. No calf tenderness. NEUROLOGICAL: Awake and alert. Cranial nerves II through XII intact. Motor and sensory grossly within normal limits. Five out of 5 muscle strength in all muscle groups. Normal speech. Lip and hand tremor. A&O 3. Medications and IVs Current Medications Medications (Trade) Dose Ordered Sig/Cheri Route Start Time Stop Time Status Last Admin Acyclovir Sodium 791 mg/Sodium Chloride 150 ml @ 150 mls/hr Q8H IV 09/10/17 01:00 09/10/17 16:32 Sodium Chloride 1,000 ml @ 100 mls/hr Q10H IV 09/09/17 15:14 09/10/17 11:59 (NS Flush) 2 ml UNSCH PRN IV FLUSH 09/09/17 15:15 (NS Flush) 2 ml BID IV FLUSH 09/09/17 21:00 09/09/17 22:13 (Narcan Inj) 0.4 mg UNSCH PRN IV PUSH 09/09/17 15:15 (Marisabel-Colace) 1 tab BID PO 09/09/17 21:00 09/10/17 09:24 (Milk Of Magnesia Liq) 30 ml Q12H PRN PO 09/09/17 15:15 (Senokot) 17.2 mg Q12H PRN PO 09/09/17 15:15 (Dulcolax Supp) 10 mg DAILY PRN RECTAL 09/09/17 15:15 (Lactulose Liq) 30 ml DAILY PRN PO 09/09/17 15:15 (Norvasc) 10 mg DAILY PO 09/10/17 09:00 09/10/17 09:23 (Apresoline) 100 mg BID PO 09/09/17 21:00 09/10/17 09:23 (Cozaar) 25 mg DAILY PO 09/10/17 09:00 09/10/17 09:23 (Sinemet 25-100 Mg) 1 tab Q8HR PO 09/09/17 22:00 09/10/17 15:13 (Tylenol) 650 mg Q6H PRN PO 09/10/17 09:15 09/10/17 09:28 Piperacillin Sod/ Tazobactam Sod 100 ml @ 200 mls/hr Q8H IV 09/10/17 14:00 09/10/17 15:24 Pharmacy Profile Note 0 ml @ 0 mls/hr UNSCH OTHER 09/10/17 12:30 Vancomycin HCl 1500 mg/Sodium Chloride 515 ml @ 257.5 mls/ hr Q24H IV 09/10/17 18:00 09/10/17 17:40 Miscellaneous Information SPECIFIC LAB TO BE SHAKIRA... ONCE ONCE .XX 09/12/17 17:45 09/12/17 17:46 A/P Problem List: (1) Sepsis ICD Code: A41.9 - Sepsis, unspecified organism Plan: Sepsis secondary to suspected aspiration pneumonia. The patient has been admitted to the medical floor, placed on telemetry. Patient was started empirically by Dr. Serrano on vancomycin, acyclovir and ceftriaxone. I will discontinue IV Rocephin and start on IV Zosyn to cover for aspiration pneumonia. I will start the patient IV vancomycin and IV Zosyn. Continue supportive therapy with IV normal saline Blood cultures negative to date CSF culture negative. Flu a and B- HSV DNA PCR is pending. (2) Encephalopathy acute ICD Code: G93.40 - Encephalopathy, unspecified Status: Acute Plan: Head CT negative. Likely metabolic secondary to sepsis. Monitor neurological status in order neurochecks. (3) Aspiration pneumonia ICD Code: J69.0 - Pneumonitis due to inhalation of food and vomit Status: Acute Plan: Chest x-ray on admission did not show any acute disease. However, repeat chest x-ray obtained today on 09/10 shows a right lower lobe infiltrate. (4) Acute hypoxemic respiratory failure ICD Code: J96.01 - Acute respiratory failure with hypoxia Plan: The patient is currently on nasal cannula but requiring 4 L nasal cannula. (5) LISA (acute kidney injury) ICD Code: N17.9 - Acute kidney failure, unspecified Plan: Creatinine on admission was 1.63, but do not have any previous labs to compare with. Creatinine now is trending down to 1.39. Suspect prerenal azotemia. We'll check renal ultrasound, and Lucy Timmy fluids, continue to monitor BUN/creatinine, monitor strict I's and O's and avoid nephrotoxins. (6) Anemia ICD Code: D64.9 - Anemia, unspecified Plan: We'll check iron studies. Bilirubin normal. Hemoglobin low possibly secondary to sepsis and acute infection. Monitor hemoglobin. (7) Febrile illness ICD Code: R50.9 - Fever, unspecified Status: Acute Plan: The patient is having elevated temperatures after temperature of 102.9. Start the patient on Tylenol as needed for fever. Assessment and Plan DVT prophylaxis: SCDs, I will add Lovenox subcutaneously. Discharge Planning Continue to monitor in the medical floor. Discharge pending clinical improvement. Problem Qualifiers (1) Sepsis: Qualified Codes: A41.9 - Sepsis, unspecified organism (2) Aspiration pneumonia: Qualified Codes: J69.0 - Pneumonitis due to inhalation of food and vomit (3) Anemia: Qualified Codes: D64.9 - Anemia, unspecified Mainor Adan MD Sep 10, 2017 17:42
[2017-09-10] MEDS: ENOXAPARIN SODIUM 40 MG/0.4 ML SYRINGE SQ SCH (21:37)
[2017-09-11] VITALS (9 sets, daily range): BP systolic 124–182; BP diastolic 72–92; PULSE 57–102; RESP 18–20; TEMP 98–98.8; O2SAT 93–98
[2017-09-11] MEDS: SODIUM CHLORIDE 0.9% IV SCH ×2 (01:30→09:43)
[2017-09-11] MEDS: ACYCLOVIR IV SCH ×2 (01:30→09:43)
[2017-09-11] MEDS: PIPERACIL-TAZO 4.5 GM PREMIX 100 ML IV SCH ×3 (06:12→21:05)
[2017-09-11] MEDS: CARBIDOPA/LEVODOPA 25 MG/100 MG TAB PO SCH ×3 (06:12→21:03)
[2017-09-11] MEDS: SODIUM CHLOR 0.9% 1000 ML INJ 1,000 ML IV SCH ×2 (06:13→18:20)
[2017-09-11] MEDS: SODIUM CHLORIDE 0.9% FLUSH 10 ML FLUSH IV FLUSH SCH ×2 (09:00→21:04)
[2017-09-11] MEDS: DOCUSATE SODIUM 50 MG/SENNA 8.6 MG TAB PO SCH ×2 (09:43→21:00)
[2017-09-11] MEDS: hydrALAZINE HCL 100 MG TAB PO SCH ×2 (09:43→21:03)
[2017-09-11] MEDS: LOSARTAN 25 MG TAB PO SCH (09:43)
--- NOTE | 2017-09-11 09:53 | MB ---
cc: HARRIETT DAVENPORT MD DATE OF CONSULTATION: 09/10/2017 REASON FOR CONSULTATION: Encephalopathy. Parkinson disease and visual hallucinations. HISTORY OF PRESENT ILLNESS Mr. Zafar is a 76-year-old male with past medical history for hypertension, Parkinson's disease, is seen with at the bedside. The patient is confused, thus the medical history is obtained from the who was at the bedside and the medical records. He was brought into the [facility] emergency room by his for evaluation of altered mental status. The reports that this disorientation started a few days ago. He started to have visual hallucinations where he believed he saw a cow in the front yard, gradually worsened over the days with shaking and fever. He was disoriented to time, place and person with mild slurring of speech. She states that he has had episodes of visual hallucination but they were very transient. The patient follows up with Dr. Herring when he was diagnosed with Parkinson's disease since 2009. He is on carbidopa/levodopa. He has developed fever at home with cough. Upon arrival to the emergency room temperature was 102.8, respiratory rate was 24, pulse ox was 19. Head CT scan was negative for acute intracranial abnormality. Ammonia was elevated. Neurology is consulted for evaluation of all of altered mental status. REVIEW OF SYSTEMS A 12-point review of system as per is negative except for what is stated in the HPI. PAST MEDICAL HISTORY Hypertension, osteoarthritis, Parkinson disease. PAST SURGICAL HISTORY Hernia repair two times. Right knee replacement. MEDICATIONS 1. Aspirin. 2. Amlodipine. 3. Meloxicam. 4. Flexeril. 5. Losartan. 6. Carbidopa/levodopa 25/100 milligrams q3 hourly. 7. Hydralazine. ALLERGIES No known allergies. FAMILY HISTORY Mother with coronary artery disease. SOCIAL HISTORY Former smoker, 6 ounces of wine daily. No illicit drugs. PHYSICAL EXAMINATION General: Awake and disoriented, poor historian, irritable with physical restraints. HEENT: Atraumatic, normocephalic. Unable to accurately assess for hearing or vision. Neck: Soft, supple. No signs of meningeal irritation. Cardiovascular: Regular rate and rhythm. Respiratory: Clear to auscultation. No wheezes. Gastrointestinal: Abdomen not distended. Musculoskeletal: No clubbing, cyanosis or edema. Neurological: Awake, alert, not oriented to time, person or place, irritable, anxious. Extremities: Bilateral upper extremity tremor. Cogwheel rigidity upper and lower extremities, unable to assess motor, sensory or cerebellar function due to the condition of the patient. DIAGNOSTIC STUDIES - Head CT scan was reported with no acute intracranial abnormality. LABORATORY DATA - White blood cells 5.9, hemoglobin 10.4, platelet 156, sodium 143, potassium 3.7, BUN 23, creatinine 1.39, total CK 510, ammonia 35. UDS positive for cannabinoids. CSF analysis revealed clear fluid, CSF glucose of 53, protein elevated and 67, white blood cells 3, RBC 3. ASSESSMENT AND PLAN: 1. Encephalopathy with visual hallucinations This is not an uncommon manifestation of Parkinson's to have visual hallucinations. Encephalopathy may be related to infection and fever, another likely possibility is serotonin syndrome. 2. Hypoxemia. 3. Aspiration pneumonia. 4. Acute hypoxemic respiratory failure, hypoxemia may also contribute to the encephalopathy. 5. LISA. PLAN: Neuro checks q4 hourly. Benzos p.r.n., like diazepam or lorazepam q6 hourly for agitation, antipyretics. IV fluids. Carbidopa/levadopa, may be a serotoninergic medication. Will reassess and may lower the dose if needed. No Haldol. Continue supportive medical therapy. I discussed the case with the at length. I answered the questions to the best of my knowledge. DVT prophylaxis. SCDs. Thank you for the opportunity to participate in the care of your patient. MD NAMITA Durán/WALTER /10:28 PM /8:42 AM [facility]
--- NOTE | 2017-09-11 11:30 | HHI.PR ---
Subjective Subjective Comments No acute events reported No headache No chest pain No dyspnea Active Medications Current Medications Medications (Trade) Dose Ordered Sig/Cheri Route Start Time Stop Time Status Last Admin Acyclovir Sodium 791 mg/Sodium Chloride 150 ml @ 150 mls/hr Q8H IV 09/10/17 01:00 09/11/17 09:43 Sodium Chloride 1,000 ml @ 100 mls/hr Q10H IV 09/09/17 15:14 09/11/17 06:13 (NS Flush) 2 ml UNSCH PRN IV FLUSH 09/09/17 15:15 (NS Flush) 2 ml BID IV FLUSH 09/09/17 21:00 09/10/17 21:31 (Narcan Inj) 0.4 mg UNSCH PRN IV PUSH 09/09/17 15:15 (Marisabel-Colace) 1 tab BID PO 09/09/17 21:00 09/11/17 09:43 (Milk Of Magnesia Liq) 30 ml Q12H PRN PO 09/09/17 15:15 (Senokot) 17.2 mg Q12H PRN PO 09/09/17 15:15 (Dulcolax Supp) 10 mg DAILY PRN RECTAL 09/09/17 15:15 (Lactulose Liq) 30 ml DAILY PRN PO 09/09/17 15:15 (Norvasc) 10 mg DAILY PO 09/10/17 09:00 09/11/17 09:43 (Apresoline) 100 mg BID PO 09/09/17 21:00 09/11/17 09:43 (Cozaar) 25 mg DAILY PO 09/10/17 09:00 09/11/17 09:43 (Sinemet 25-100 Mg) 1 tab Q8HR PO 09/09/17 22:00 09/11/17 06:12 (Tylenol) 650 mg Q6H PRN PO 09/10/17 09:15 09/10/17 09:28 Piperacillin Sod/ Tazobactam Sod 100 ml @ 200 mls/hr Q8H IV 09/10/17 14:00 09/11/17 06:12 Pharmacy Profile Note 0 ml @ 0 mls/hr UNSCH OTHER 09/10/17 12:30 Vancomycin HCl 1500 mg/Sodium Chloride 515 ml @ 257.5 mls/ hr Q24H IV 09/10/17 18:00 09/10/17 17:40 Miscellaneous Information SPECIFIC LAB TO BE SHAKIRA... ONCE ONCE .XX 09/12/17 17:45 09/12/17 17:46 (Lovenox Inj) 40 mg Q24H SQ 09/10/17 20:00 09/10/17 21:37 Allergies Allergies Coded Allergies No Known Allergies (Unverified Allergy, Unknown, 09/09/17) Exam I&O / VS Vital Signs Date Time Temp Pulse Resp B/P (MAP) Pulse Ox O2 Delivery O2 Flow Rate FiO2 09/11/17 04:00 98.0 77 18 134/86 (102) 95 09/11/17 03:48 93 09/11/17 00:00 98.3 57 20 124/81 (95) 97 09/11/17 00:00 Nasal Cannula 3.00 09/10/17 23:46 97 09/10/17 20:00 97.9 79 18 123/59 (80) 95 09/10/17 20:00 Nasal Cannula 3.00 09/10/17 20:00 99.5 114 20 125/65 (85) 92 09/10/17 19:46 100 09/10/17 15:17 98.8 99 20 141/65 (90) 93 09/10/17 12:00 102.7 56 20 144/78 (100) 96 Objective Micro and Labs Date/Time Source Procedure Growth Status 09/10/17 02:15 Blood Peripheral Aerobic Blood Culture - Preliminary NO GROWTH IN 1 DAY Resulted 09/10/17 02:15 Blood Peripheral Anaerobic Blood Culture - Preliminary NO GROWTH IN 1 DAY Resulted 09/09/17 15:57 Cerebral Spinal Fluid Lumbar Puncture Gram Stain - Final Resulted 09/09/17 15:57 Cerebral Spinal Fluid Lumbar Puncture CSF Culture - Preliminary NO GROWTH IN 48 HOURS. Resulted 09/09/17 13:00 Nasal Aspirate Influenza Types A,B Antigen (ELIF) - Final NEGATIVE FOR FLU A AND B ANTIGEN.... Complete Estrada Aguila MD Sep 11, 2017 11:30
[2017-09-11 13:26] LABS: AUTOMATED NEUTROPHIL # 3.7 TH/MM3 (1.8-7.7); BASOPHIL % 0.5 % (0.0-2.0); EOSINOPHIL # 0.1 TH/MM3 (0-0.4); EOSINOPHIL % 1.4 % (0.0-4.0); HEMATOCRIT 30.3 % (39.0-51.0); HEMOGLOBIN 10.6 GM/DL (13.0-17.0); LYMPH % 12.1 % (9.0-44.0); LYMPHOCYTE # 0.5 TH/MM3 (1.0-4.8); MEAN CELL VOLUME 88.2 FL (80.0-100.0); MEAN CORPUSCULAR HEMOGLOBIN 30.8 PG (27.0-34.0); MEAN CORPUSCULAR HGB CONC 34.9 % (32.0-36.0); MEAN PLATELET VOLUME 8.3 FL (7.0-11.0); MONO % 4.7 % (0.0-8.0); MONOCYTE # 0.2 TH/MM3 (0-0.9); NEUT % 81.3 % (16.0-70.0); PLATELET COUNT 161 TH/MM3 (150-450); RED BLOOD COUNT 3.43 MIL/MM3 (4.50-5.90); RED CELL DISTRIBUTION WIDTH 13.6 % (11.6-17.2); WHITE BLOOD COUNT 4.5 TH/MM3 (4.0-11.0)
[2017-09-11 13:47] LABS: ALBUMIN 2.8 GM/DL (3.4-5.0); ALT (GPT) 8 U/L (12-78); AST (GOT) 28 U/L (15-37); BICARBONATE 25.9 MEQ/L (21.0-32.0); BLOOD UREA NITROGEN 21 MG/DL (7-18); CALCIUM 7.9 MG/DL (8.5-10.1); CHLORIDE 110 MEQ/L (98-107); CREATININE 1.44 MG/DL (0.60-1.30); GLOMERULAR FILTRATION RATE 48 ML/MIN (>89); GLUCOSE,RANDOM 111 MG/DL (74-106); MAGNESIUM 1.9 MG/DL (1.5-2.5); SODIUM (NA) 142 MEQ/L (136-145)
[2017-09-11 13:49] LABS: ALKALINE PHOSPHATASE 47 U/L (45-117); TOTAL BILIRUBIN ADULT 0.5 MG/DL (0.2-1.0); TOTAL PROTEIN 6.1 GM/DL (6.4-8.2)
--- NOTE | 2017-09-11 17:44 | HHI.PR ---
Subjective Remarks at bedside. States patient's breathing status is better and he is doing better. Patient denies cp. afebrile. Objective Vitals Vital Signs Date Time Temp Pulse Resp B/P (MAP) Pulse Ox O2 Delivery O2 Flow Rate FiO2 09/11/17 12:00 100 09/11/17 12:00 98.8 102 20 155/72 (99) 93 09/11/17 08:00 98.5 101 20 182/85 (117) 94 09/11/17 08:00 91 09/11/17 04:00 98.0 77 18 134/86 (102) 95 09/11/17 03:48 93 09/11/17 00:00 98.3 57 20 124/81 (95) 97 09/11/17 00:00 Nasal Cannula 3.00 09/10/17 23:46 97 09/10/17 20:00 97.9 79 18 123/59 (80) 95 09/10/17 20:00 Nasal Cannula 3.00 09/10/17 20:00 99.5 114 20 125/65 (85) 92 09/10/17 19:46 100 I/O 09/10/17 09/10/17 09/10/17 09/11/17 09/11/17 09/11/17 06:59 14:59 22:59 06:59 14:59 22:59 Intake Total 200 ml 240 ml 750 ml Output Total 300 ml 1050 ml 800 ml Balance -100 ml -810 ml -50 ml Intake Oral 200 ml 240 ml IV Total 750 ml Output Urine Total 300 ml 1050 ml 800 ml # Voids 3 # Bowel Movements 0 0 Result Diagram: 09/11/17 1315 09/11/17 1315 Imaging Last Impressions Chest X-Ray 09/10/17 0000 Signed Impressions: Service Date/Time: Sunday, September 10, 2017 08:33 - CONCLUSION: Patchy mild right perihilar pulmonary opacity indicating atelectasis versus mild consolidation. Chente Lo MD Head CT 09/09/17 1245 Signed Impressions: Service Date/Time: Saturday, September 09, 2017 13:32 - CONCLUSION: No acute intracranial findings. Rashad Morgan MD Lumbar Puncture Fluoroscopy 09/09/17 0000 Signed Impressions: Service Date/Time: Matthias, September 09, 2017 15:25 - CONCLUSION: Uncomplicated fluoroscopically guided lumbar puncture. Rashad Morgan MD Objective Remarks GENERAL: male lying in bed, Awake and aler, NAD SKIN: No rashes, ecchymoses or lesions. Cool and dry. HEAD: Atraumatic. Normocephalic. No temporal or scalp tenderness. EYES: Pupils equal round and reactive. Extraocular motions intact. No scleral icterus. No injection or drainage. ENT: Nose without bleeding, purulent drainage or septal hematoma. Throat without erythema, tonsillar hypertrophy or exudate. Uvula midline. Airway patent. NECK: Trachea midline. No JVD or lymphadenopathy. Supple, nontender, no meningeal signs. Full range of motion of the neck without pain. CARDIOVASCULAR: Regular rate and rhythm without murmurs, gallops, or rubs. RESPIRATORY: rhonchi on right lower lung field. No wheezing or rales auscultated. GASTROINTESTINAL: Abdomen soft, non-tender, nondistended. No hepato-splenomegaly , or palpable masses. No guarding. MUSCULOSKELETAL: Extremities without clubbing, cyanosis, or edema. No joint tenderness, effusion, or edema noted. No calf tenderness. NEUROLOGICAL: Awake and alert. Cranial nerves II through XII intact. Motor and sensory grossly within normal limits. Five out of 5 muscle strength in all muscle groups. Normal speech. Lip and hand tremor. A&O 3. Procedures none Medications and IVs Current Medications Medications (Trade) Dose Ordered Sig/Cheri Route Start Time Stop Time Status Last Admin Sodium Chloride 1,000 ml @ 100 mls/hr Q10H IV 09/09/17 15:14 09/11/17 06:13 (NS Flush) 2 ml UNSCH PRN IV FLUSH 09/09/17 15:15 (NS Flush) 2 ml BID IV FLUSH 09/09/17 21:00 09/10/17 21:31 (Narcan Inj) 0.4 mg UNSCH PRN IV PUSH 09/09/17 15:15 (Marisabel-Colace) 1 tab BID PO 09/09/17 21:00 09/11/17 09:43 (Milk Of Magnesia Liq) 30 ml Q12H PRN PO 09/09/17 15:15 (Senokot) 17.2 mg Q12H PRN PO 09/09/17 15:15 (Dulcolax Supp) 10 mg DAILY PRN RECTAL 09/09/17 15:15 (Lactulose Liq) 30 ml DAILY PRN PO 09/09/17 15:15 (Norvasc) 10 mg DAILY PO 09/10/17 09:00 09/11/17 09:43 (Apresoline) 100 mg BID PO 09/09/17 21:00 09/11/17 09:43 (Cozaar) 25 mg DAILY PO 09/10/17 09:00 09/11/17 09:43 (Sinemet 25-100 Mg) 1 tab Q8HR PO 09/09/17 22:00 09/11/17 13:52 (Tylenol) 650 mg Q6H PRN PO 09/10/17 09:15 09/10/17 09:28 Piperacillin Sod/ Tazobactam Sod 100 ml @ 200 mls/hr Q8H IV 09/10/17 14:00 09/11/17 13:52 Pharmacy Profile Note 0 ml @ 0 mls/hr UNSCH OTHER 09/10/17 12:30 Vancomycin HCl 1500 mg/Sodium Chloride 515 ml @ 257.5 mls/ hr Q24H IV 09/10/17 18:00 09/10/17 17:40 Miscellaneous Information SPECIFIC LAB TO BE SHAKIRA... ONCE ONCE .XX 09/12/17 17:45 09/12/17 17:46 (Lovenox Inj) 40 mg Q24H SQ 09/10/17 20:00 09/10/17 21:37 Acyclovir Sodium 791 mg/Sodium Chloride 150 ml @ 150 mls/hr Q12H IV 09/11/17 22:00 A/P Problem List: (1) Sepsis ICD Code: A41.9 - Sepsis, unspecified organism Status: Resolved Plan: Sepsis secondary to suspected aspiration pneumonia. The patient has been admitted to the medical floor, placed on telemetry. Patient was started empirically by Dr. Serrano on vancomycin, acyclovir and ceftriaxone, IV fluids. IV Rocephin discontinued on 09/10 and patient started on IV Zosyn + IV Vancomycin to cover for aspiration pneumonia. Blood cultures negative to date CSF culture negative. Flu a and B- HSV DNA PCR is pending. 09/11 DC IV Acyclovir since CSF culture negative. (2) Encephalopathy acute ICD Code: G93.40 - Encephalopathy, unspecified Status: Acute Plan: Head CT negative. Likely metabolic secondary to sepsis. Monitor neurological status in order neurochecks. 09/11 appreciate neurology recommendations. Patient having some hallucinations which are commonly seen in patients with Parkinson's. However, patient is more awake and alert, IV encephalopathy is resolving. (3) Aspiration pneumonia ICD Code: J69.0 - Pneumonitis due to inhalation of food and vomit Status: Acute Plan: Chest x-ray on admission did not show any acute disease. However, repeat chest x-ray obtained today on 09/10 shows a right lower lobe infiltrate. 09/11 Check speech therapy consult for Swallow evaluation. (4) Acute hypoxemic respiratory failure ICD Code: J96.01 - Acute respiratory failure with hypoxia Plan: The patient is currently on nasal cannula but requiring 4 L nasal cannula. (5) LISA (acute kidney injury) ICD Code: N17.9 - Acute kidney failure, unspecified Plan: Creatinine on admission was 1.63, but do not have any previous labs to compare with. Creatinine now is trending down to 1.39. 09/11 I suspect prerenal septemia. Creatinine is slightly up from 1.39-1.44. Will check renal ultrasound and will continue IV fluids for now. We'll also order a bladder scan to measure the postvoid residual volume. (6) Anemia ICD Code: D64.9 - Anemia, unspecified Plan: Check iron studies. Bilirubin normal. Hemoglobin low possibly secondary to sepsis and acute infection. Monitor hemoglobin. 09/11 Hemoglobin stable. (7) Febrile illness ICD Code: R50.9 - Fever, unspecified Status: Acute Plan: The patient is having elevated temperatures after temperature of 102.9. Tylenol for fever 09/11 fever resolved. Assessment and Plan DVT prophylaxis: SCDs, I will add Lovenox subcutaneously. Discharge Planning Continue to monitor in the medical floor. Discharge pending clinical improvement. Patient will need rehab. Problem Qualifiers (1) Sepsis: Qualified Codes: A41.9 - Sepsis, unspecified organism (2) Aspiration pneumonia: Qualified Codes: J69.0 - Pneumonitis due to inhalation of food and vomit (3) Anemia: Qualified Codes: D64.9 - Anemia, unspecified Mainor Adan MD Sep 11, 2017 17:44
[2017-09-11] MEDS: VANCOMYCIN 1,500 MG/NS 500 ML IV SCH ×2 (18:20)
[2017-09-11 18:37] LABS: % SATURATION IRON PROFILE 5.8 % (20-50); IRON (FE) 12 MCG/DL (65-175); TOTAL IRON BINDING CAPACITY 206 MCG/DL (250-450)
[2017-09-11 18:40] LABS: FERRITIN 128 NG/ML (26-388)
--- NOTE | 2017-09-11 20:19 | RADRPT ---
EXAM DATE/TIME: 09/11/2017 19:34 [place] COMPARISON: No previous studies available for comparison. INDICATIONS : Abnormal labs. MEDICAL HISTORY : Parkinsons. Hypertension. GERD. OA. Sepsis. Encephalopathy. LISA. Respiratory failure. Anemia. Renal d isease. SURGICAL HISTORY : Eye surgery. Oral surgery. Gentiourinary surgery. Right knee replacement. ENCOUNTER: Initial ACUITY: 1 day PAIN SCORE: 0/10 LOCATION: Bilateral flank MEASUREMENTS: RIGHT KIDNEY: 10.0 x 4.4 x 4.3 cm LEFT KIDNEY: 12.3 x 5.3 x 4.8 cm FINDINGS: RIGHT KIDNEY: Renal cortex is normal in thickness and echotexture. No hydronephrosis, stone, or mass. LEFT KIDNEY: Renal cortex is normal in thickness and echotexture. 2.6 cm benign lower pole cyst. No hydronephrosi s, stone, or solid mass. BLADDER: Mildly masslike posterior wall thickening measuring 2.3 x 2.2 x 1.5 cm CONCLUSION: 1. No obstruction or other acute abnormality of either kidney. 2. Focal masslike area posteriorly of the urinary bladder and correlation with direct visualization r ecommended. 3. Simple, benign cyst of the left kidney. Rashad Celis MD on September 11, 2017 at 20:13 Board Certified Radiologist. This report was verified electronically.
[2017-09-11] MEDS: ENOXAPARIN SODIUM 40 MG/0.4 ML SYRINGE SQ SCH (21:04)
[2017-09-11] MEDS ORDERED: ACYCLOVIR IV SCH (22:00)
[2017-09-11] MEDS ORDERED: SODIUM CHLORIDE 0.9% IV SCH (22:00)
[2017-09-12] VITALS (9 sets, daily range): BP systolic 140–203; BP diastolic 75–108; PULSE 67–100; RESP 18–20; TEMP 97.6–99.5; O2SAT 93–97
[2017-09-12] MEDS: SODIUM CHLOR 0.9% 1000 ML INJ 1,000 ML IV SCH ×2 (03:45→13:45)
[2017-09-12 05:40] LABS: AUTOMATED NEUTROPHIL # 3.5 TH/MM3 (1.8-7.7); BASOPHIL % 0.4 % (0.0-2.0); EOSINOPHIL # 0.1 TH/MM3 (0-0.4); EOSINOPHIL % 3.2 % (0.0-4.0); HEMATOCRIT 32.2 % (39.0-51.0); HEMOGLOBIN 11.2 GM/DL (13.0-17.0); LYMPH % 13.7 % (9.0-44.0); LYMPHOCYTE # 0.6 TH/MM3 (1.0-4.8); MEAN CELL VOLUME 87.6 FL (80.0-100.0); MEAN CORPUSCULAR HEMOGLOBIN 30.5 PG (27.0-34.0); MEAN CORPUSCULAR HGB CONC 34.8 % (32.0-36.0); MEAN PLATELET VOLUME 8.2 FL (7.0-11.0); MONO % 4.8 % (0.0-8.0); MONOCYTE # 0.2 TH/MM3 (0-0.9); NEUT % 77.9 % (16.0-70.0); PLATELET COUNT 166 TH/MM3 (150-450); RED BLOOD COUNT 3.68 MIL/MM3 (4.50-5.90); RED CELL DISTRIBUTION WIDTH 13.4 % (11.6-17.2); WHITE BLOOD COUNT 4.5 TH/MM3 (4.0-11.0)
[2017-09-12 06:01] LABS: ALBUMIN 2.9 GM/DL (3.4-5.0); AST (GOT) 32 U/L (15-37); BICARBONATE 22.6 MEQ/L (21.0-32.0); BLOOD UREA NITROGEN 17 MG/DL (7-18); CALCIUM 8.4 MG/DL (8.5-10.1); CHLORIDE 108 MEQ/L (98-107); CREATININE 1.46 MG/DL (0.60-1.30); GLOMERULAR FILTRATION RATE 47 ML/MIN (>89); GLUCOSE,RANDOM 95 MG/DL (74-106); MAGNESIUM 1.9 MG/DL (1.5-2.5); SODIUM (NA) 140 MEQ/L (136-145)
[2017-09-12 06:02] LABS: ALT (GPT) 8 U/L (12-78); PHOSPHORUS 2.4 MG/DL (2.5-4.9)
[2017-09-12 06:04] LABS: ALKALINE PHOSPHATASE 49 U/L (45-117); TOTAL BILIRUBIN ADULT 0.6 MG/DL (0.2-1.0); TOTAL PROTEIN 6.5 GM/DL (6.4-8.2)
[2017-09-12] MEDS: PIPERACIL-TAZO 4.5 GM PREMIX 100 ML IV SCH ×3 (06:21→23:38)
[2017-09-12] MEDS: CARBIDOPA/LEVODOPA 25 MG/100 MG TAB PO SCH ×5 (06:21→22:36)
[2017-09-12] MEDS: DOCUSATE SODIUM 50 MG/SENNA 8.6 MG TAB PO SCH ×2 (08:22→22:42)
[2017-09-12] MEDS: hydrALAZINE HCL 100 MG TAB PO SCH ×2 (08:22→22:42)
[2017-09-12] MEDS: SODIUM CHLORIDE 0.9% FLUSH 10 ML FLUSH IV FLUSH SCH ×2 (08:22→21:00)
[2017-09-12] MEDS: LOSARTAN 25 MG TAB PO SCH (08:22)
[2017-09-12] MEDS: cloNIDine HCL 0.1 MG TAB PO PRN (13:51)
[2017-09-12] MEDS ORDERED: PHARMACY ORDERED LAB ONE (17:45)
--- NOTE | 2017-09-12 18:00 | HHI.PR ---
Subjective Remarks Deferred entry - patient seen earlier at 1300 hrs Patient is more awake, although still hallucinating Daughter is at bedside. sating well on 3 liters nasal canula Objective Vitals Vital Signs Date Time Temp Pulse Resp B/P (MAP) Pulse Ox O2 Delivery O2 Flow Rate FiO2 09/12/17 16:00 98.9 87 19 140/100 (113) 97 09/12/17 12:00 99.2 67 19 180/108 (132) 95 09/12/17 08:00 98.7 95 19 179/87 (117) 94 09/12/17 04:00 Nasal Cannula 3.00 09/12/17 04:00 99.5 90 20 153/92 (112) 93 09/12/17 03:48 100 09/12/17 00:12 97.6 94 18 151/75 (100) 97 09/12/17 00:00 Nasal Cannula 3.00 09/11/17 23:44 87 09/11/17 20:00 Nasal Cannula 3.00 09/11/17 20:00 98.8 93 18 160/92 (114) 98 09/11/17 19:47 94 I/O 09/11/17 09/11/17 09/11/17 09/12/17 09/12/17 09/12/17 07:00 15:00 23:00 07:00 15:00 23:00 Intake Total 750 ml 480 ml 240 ml Output Total 800 ml 875 ml 800 ml Balance -50 ml -395 ml -560 ml Intake Oral 480 ml 240 ml IV Total 750 ml Output Urine Total 800 ml 875 ml 800 ml # Voids 1 # Bowel Movements 0 0 Result Diagram: 09/12/17 0515 09/12/17 0515 Imaging Last Impressions Renal Ultrasound 09/11/17 0000 Signed Impressions: Service Date/Time: Monday, September 11, 2017 19:34 - CONCLUSION: 1. No obstruction or other acute abnormality of either kidney. 2. Focal masslike area posteriorly of the urinary bladder and correlation with direct visualization recommended. 3. Simple, benign cyst of the left kidney. Rashad Celis MD Chest X-Ray 09/10/17 0000 Signed Impressions: Service Date/Time: Sunday, September 10, 2017 08:33 - CONCLUSION: Patchy mild right perihilar pulmonary opacity indicating atelectasis versus mild consolidation. Chente Lo MD Head CT 09/09/17 1245 Signed Impressions: Service Date/Time: Saturday, September 09, 2017 13:32 - CONCLUSION: No acute intracranial findings. Rashad Morgan MD Lumbar Puncture Fluoroscopy 09/09/17 0000 Signed Impressions: Service Date/Time: Saturday, September 09, 2017 15:25 - CONCLUSION: Uncomplicated fluoroscopically guided lumbar puncture. Rashad Morgan MD Objective Remarks GENERAL: male lying in bed, Awake and aler, NAD SKIN: No rashes, ecchymoses or lesions. Cool and dry. HEAD: Atraumatic. Normocephalic. No temporal or scalp tenderness. EYES: Pupils equal round and reactive. Extraocular motions intact. No scleral icterus. No injection or drainage. ENT: Nose without bleeding, purulent drainage or septal hematoma. Throat without erythema, tonsillar hypertrophy or exudate. Uvula midline. Airway patent. NECK: Trachea midline. No JVD or lymphadenopathy. Supple, nontender, no meningeal signs. Full range of motion of the neck without pain. CARDIOVASCULAR: Regular rate and rhythm without murmurs, gallops, or rubs. RESPIRATORY: rhonchi on right lower lung field. No wheezing or rales auscultated. GASTROINTESTINAL: Abdomen soft, non-tender, nondistended. No hepato-splenomegaly , or palpable masses. No guarding. MUSCULOSKELETAL: Extremities without clubbing, cyanosis, or edema. No joint tenderness, effusion, or edema noted. No calf tenderness. NEUROLOGICAL: Awake and alert. Cranial nerves II through XII intact. Motor and sensory grossly within normal limits. Five out of 5 muscle strength in all muscle groups. Normal speech. Lip and hand tremor. A&O 3. Procedures none Medications and IVs Current Medications Medications (Trade) Dose Ordered Sig/Cheri Route Start Time Stop Time Status Last Admin (NS Flush) 2 ml UNSCH PRN IV FLUSH 09/09/17 15:15 (NS Flush) 2 ml BID IV FLUSH 09/09/17 21:00 09/12/17 08:22 (Narcan Inj) 0.4 mg UNSCH PRN IV PUSH 09/09/17 15:15 (Marisabel-Colace) 1 tab BID PO 09/09/17 21:00 09/12/17 08:22 (Milk Of Magnesia Liq) 30 ml Q12H PRN PO 09/09/17 15:15 (Senokot) 17.2 mg Q12H PRN PO 09/09/17 15:15 (Dulcolax Supp) 10 mg DAILY PRN RECTAL 09/09/17 15:15 (Lactulose Liq) 30 ml DAILY PRN PO 09/09/17 15:15 (Norvasc) 10 mg DAILY PO 09/10/17 09:00 09/12/17 08:22 (Apresoline) 100 mg BID PO 09/09/17 21:00 09/12/17 08:22 (Cozaar) 25 mg DAILY PO 09/10/17 09:00 09/12/17 08:22 (Tylenol) 650 mg Q6H PRN PO 09/10/17 09:15 09/10/17 09:28 Piperacillin Sod/ Tazobactam Sod 100 ml @ 200 mls/hr Q8H IV 09/10/17 14:00 09/12/17 13:51 Pharmacy Profile Note 0 ml @ 0 mls/hr UNSCH OTHER 09/10/17 12:30 Vancomycin HCl 1500 mg/Sodium Chloride 515 ml @ 257.5 mls/ hr Q24H IV 09/10/17 18:00 09/11/17 18:20 Miscellaneous Information SPECIFIC LAB TO BE ... ONCE ONCE .XX 09/12/17 17:45 09/12/17 17:46 (Lovenox Inj) 40 mg Q24H SQ 09/10/17 20:00 09/11/17 21:04 Sodium Chloride 1,000 ml @ 100 mls/hr Q10H IV 09/11/17 17:45 09/12/17 13:45 (Sinemet 25-100 Mg) 2 tab Q3HR PO 09/12/17 14:00 09/12/17 17:05 (Catapres) 0.1 mg Q6H PRN PO 09/12/17 13:15 09/12/17 13:51 A/P Problem List: (1) Sepsis ICD Code: A41.9 - Sepsis, unspecified organism Status: Resolved Plan: Sepsis secondary to suspected aspiration pneumonia. The patient has been admitted to the medical floor, placed on telemetry. Patient was started empirically by Dr. Mgagie on vancomycin, acyclovir and ceftriaxone, IV fluids. IV Rocephin discontinued on 09/10 and patient started on IV Zosyn + IV Vancomycin to cover for aspiration pneumonia. Blood cultures negative to date CSF culture negative. Flu a and B- HSV DNA PCR is pending. 09/11 DC IV Acyclovir since CSF culture negative. 09/12 sepsis symptoms improving. Continue IV vancomycin and IV Zosyn. DC IV fluids. (2) Encephalopathy acute ICD Code: G93.40 - Encephalopathy, unspecified Status: Acute Plan: Head CT negative. Likely metabolic secondary to sepsis. Monitor neurological status in order neurochecks. 09/11 appreciate neurology recommendations. Patient having some hallucinations which are commonly seen in patients with Parkinson's. However, patient is more awake and alert, IV encephalopathy is resolving. 09/12 Will resume correct dose of Sinemet since daughter brought the correct dosage. Encephalopathy is improving however patient is still having hallucinations. (3) Aspiration pneumonia ICD Code: J69.0 - Pneumonitis due to inhalation of food and vomit Status: Acute Plan: Chest x-ray on admission did not show any acute disease. However, repeat chest x-ray obtained today on 09/10 shows a right lower lobe infiltrate. 09/11 Check speech therapy consult for Swallow evaluation. 09/12 . Recommends mechanical soft food with thin liquids. (4) Acute hypoxemic respiratory failure ICD Code: J96.01 - Acute respiratory failure with hypoxia Plan: The patient is currently on nasal cannula but requiring 4 L nasal cannula. 09/12 Improving - down to 3 liters nasal canula. Continue supplemental oxygen to keep oxygen saturation more than 92%. Wean oxygen as tolerated. (5) LISA (acute kidney injury) ICD Code: N17.9 - Acute kidney failure, unspecified Plan: Creatinine on admission was 1.63, but do not have any previous labs to compare with. Creatinine now is trending down to 1.39. 09/11 I suspect prerenal septemia. Creatinine is slightly up from 1.39-1.44. Will check renal ultrasound and will continue IV fluids for now. We'll also order a bladder scan to measure the postvoid residual volume. 09/12 ultrasound did not show any obstruction or other acute abnormality of either kidney. There is a focal masslike area posteriorly of the urinary bladder. Simple, benign cyst of the left kidney. We'll order a urology consultation. (6) Anemia ICD Code: D64.9 - Anemia, unspecified Plan: Check iron studies. Bilirubin normal. Hemoglobin low possibly secondary to sepsis and acute infection. Monitor hemoglobin. 09/11 Hemoglobin stable. 09/12 iron studies consistent with anemia of chronic disease. Continue to monitor hemoglobin stable. (7) Febrile illness ICD Code: R50.9 - Fever, unspecified Status: Acute Plan: The patient is having elevated temperatures after temperature of 102.9. Tylenol for fever 09/11 fever resolved. Assessment and Plan DVT prophylaxis: SCDs, I will add Lovenox subcutaneously. Discharge Planning Continue to monitor in the medical floor. Discharge pending clinical improvement. Patient will need rehab. Problem Qualifiers (1) Sepsis: Qualified Codes: A41.9 - Sepsis, unspecified organism (2) Aspiration pneumonia: Qualified Codes: J69.0 - Pneumonitis due to inhalation of food and vomit (3) Anemia: Qualified Codes: D64.9 - Anemia, unspecified Mainor Adan MD Sep 12, 2017 18:00
[2017-09-12] MEDS: VANCOMYCIN 1,500 MG/NS 500 ML IV SCH ×2 (19:09)
[2017-09-12] MEDS: ENOXAPARIN SODIUM 40 MG/0.4 ML SYRINGE SQ SCH (22:41)
[2017-09-13] VITALS (10 sets, daily range): BP systolic 126–193; BP diastolic 70–99; PULSE 42–112; RESP 18–22; TEMP 97.2–98.5; O2SAT 94–96
[2017-09-13] MEDS: CARBIDOPA/LEVODOPA 25 MG/100 MG TAB PO SCH ×9 (02:00→23:00)
[2017-09-13] MEDS: cloNIDine HCL 0.1 MG TAB PO PRN (02:10)
[2017-09-13] MEDS: SODIUM CHLOR 0.9% 1000 ML INJ 1,000 ML IV SCH ×2 (04:13→14:25)
[2017-09-13] MEDS: PIPERACIL-TAZO 4.5 GM PREMIX 100 ML IV SCH ×3 (06:17→21:53)
[2017-09-13] MEDS ORDERED: DOXAZOSIN MESYLATE 2 MG TAB PO ONE (07:15)
[2017-09-13 08:36] LABS: CALCIUM 8.2 MG/DL (8.5-10.1); CREATININE 1.24 MG/DL (0.60-1.30); PHOSPHORUS 2.9 MG/DL (2.5-4.9)
[2017-09-13] MEDS: DOXAZOSIN MESYLATE 2 MG TAB PO SCH (09:00)
[2017-09-13] MEDS: SODIUM CHLORIDE 0.9% FLUSH 10 ML FLUSH IV FLUSH SCH ×2 (09:00→21:00)
[2017-09-13] MEDS: LOSARTAN 25 MG TAB PO SCH (09:37)
[2017-09-13] MEDS: hydrALAZINE HCL 100 MG TAB PO SCH ×2 (09:37→21:53)
[2017-09-13] MEDS: DOCUSATE SODIUM 50 MG/SENNA 8.6 MG TAB PO SCH ×2 (09:38→21:00)
[2017-09-13 09:51] LABS: HSV 1,PCR Negative (Negative)
--- NOTE | 2017-09-13 14:28 | HHI.PR ---
Subjective Remarks Discussed case with RN - patient is still confused however not hallucinating. Denies cp/sob afebrile BP severely elevated Objective Vitals Vital Signs Date Time Temp Pulse Resp B/P (MAP) Pulse Ox O2 Delivery O2 Flow Rate FiO2 09/13/17 12:00 112 09/13/17 08:04 97.2 88 22 188/99 (128) 96 09/13/17 08:00 87 09/13/17 07:25 Nasal Cannula 3.00 09/13/17 04:01 87 09/13/17 03:42 98.2 74 20 170/84 (112) 95 09/13/17 00:25 97.6 93 19 193/93 (126) 96 09/12/17 23:50 96 09/12/17 20:20 98.0 92 19 203/95 (131) 96 09/12/17 20:02 95 09/12/17 19:46 Nasal Cannula 3.00 09/12/17 16:00 98.9 87 19 140/100 (113) 97 I/O 09/12/17 09/12/17 09/12/17 09/13/17 09/13/17 09/13/17 07:00 15:00 23:00 07:00 15:00 23:00 Intake Total 240 ml 240 ml 1693.5 ml Output Total 800 ml 575 ml 1050 ml Balance -560 ml -335 ml 643.5 ml Intake Oral 240 ml 240 ml 120 ml IV Total 1573.5 ml Output Urine Total 800 ml 575 ml 1050 ml # Voids 0 # Bowel Movements 0 0 0 Result Diagram: 09/12/17 0515 09/13/17 0735 Imaging Last Impressions Renal Ultrasound 09/11/17 0000 Signed Impressions: Service Date/Time: Monday, September 11, 2017 19:34 - CONCLUSION: 1. No obstruction or other acute abnormality of either kidney. 2. Focal masslike area posteriorly of the urinary bladder and correlation with direct visualization recommended. 3. Simple, benign cyst of the left kidney. Rashad Celis MD Chest X-Ray 09/10/17 0000 Signed Impressions: Service Date/Time: Sunday, September 10, 2017 08:33 - CONCLUSION: Patchy mild right perihilar pulmonary opacity indicating atelectasis versus mild consolidation. Chente Lo MD Head CT 09/09/17 1245 Signed Impressions: Service Date/Time: Saturday, September 09, 2017 13:32 - CONCLUSION: No acute intracranial findings. Rashad Morgan MD Lumbar Puncture Fluoroscopy 09/09/17 0000 Signed Impressions: Service Date/Time: Saturday, September 09, 2017 15:25 - CONCLUSION: Uncomplicated fluoroscopically guided lumbar puncture. Rashad Morgan MD Objective Remarks GENERAL: male lying in bed, Awake and alert, nad AAOx2 person and date SKIN: No rashes, ecchymoses or lesions. Cool and dry. HEAD: Atraumatic. Normocephalic. No temporal or scalp tenderness. EYES: Pupils equal round and reactive. Extraocular motions intact. No scleral icterus. No injection or drainage. ENT: Nose without bleeding, purulent drainage or septal hematoma. Throat without erythema, tonsillar hypertrophy or exudate. Uvula midline. Airway patent. NECK: Trachea midline. No JVD or lymphadenopathy. Supple, nontender, no meningeal signs. Full range of motion of the neck without pain. CARDIOVASCULAR: Regular rate and rhythm without murmurs, gallops, or rubs. RESPIRATORY: CTA BL. GASTROINTESTINAL: Abdomen soft, non-tender, nondistended. No hepato-splenomegaly , or palpable masses. No guarding. MUSCULOSKELETAL: Extremities without clubbing, cyanosis, or edema. No joint tenderness, effusion, or edema noted. No calf tenderness. NEUROLOGICAL: Awake and alert. Cranial nerves II through XII intact. Motor and sensory grossly within normal limits. Five out of 5 muscle strength in all muscle groups. Normal speech. Lip and hand tremor. A&O 3. Procedures none Medications and IVs Current Medications Medications (Trade) Dose Ordered Sig/Cheri Route Start Time Stop Time Status Last Admin (NS Flush) 2 ml UNSCH PRN IV FLUSH 09/09/17 15:15 (NS Flush) 2 ml BID IV FLUSH 09/09/17 21:00 09/12/17 08:22 (Narcan Inj) 0.4 mg UNSCH PRN IV PUSH 09/09/17 15:15 (Marisabel-Colace) 1 tab BID PO 09/09/17 21:00 09/13/17 09:38 (Milk Of Magnesia Liq) 30 ml Q12H PRN PO 09/09/17 15:15 (Senokot) 17.2 mg Q12H PRN PO 09/09/17 15:15 (Dulcolax Supp) 10 mg DAILY PRN RECTAL 09/09/17 15:15 (Lactulose Liq) 30 ml DAILY PRN PO 09/09/17 15:15 (Norvasc) 10 mg DAILY PO 09/10/17 09:00 09/13/17 09:38 (Apresoline) 100 mg BID PO 09/09/17 21:00 09/13/17 09:37 (Cozaar) 25 mg DAILY PO 09/10/17 09:00 09/13/17 09:37 (Tylenol) 650 mg Q6H PRN PO 09/10/17 09:15 09/10/17 09:28 Piperacillin Sod/ Tazobactam Sod 100 ml @ 200 mls/hr Q8H IV 09/10/17 14:00 09/13/17 06:17 (Lovenox Inj) 40 mg Q24H SQ 09/10/17 20:00 09/12/17 22:41 Sodium Chloride 1,000 ml @ 100 mls/hr Q10H IV 09/11/17 17:45 09/13/17 04:13 (Sinemet 25-100 Mg) 2 tab Q3HR PO 09/12/17 14:00 09/13/17 11:28 (Catapres) 0.1 mg Q6H PRN PO 09/12/17 13:15 09/13/17 02:10 (Cardura) 2 mg DAILY PO 09/13/17 09:00 A/P Problem List: (1) Sepsis ICD Code: A41.9 - Sepsis, unspecified organism Status: Resolved Plan: Sepsis secondary to suspected aspiration pneumonia. The patient has been admitted to the medical floor, placed on telemetry. Patient was started empirically by Dr. Serrano on vancomycin, acyclovir and ceftriaxone, IV fluids. IV Rocephin discontinued on 09/10 and patient started on IV Zosyn + IV Vancomycin to cover for aspiration pneumonia. Blood cultures negative to date CSF culture negative. Flu a and B- HSV DNA PCR is pending. 09/11 DC IV Acyclovir since CSF culture negative. 09/12 sepsis symptoms improving. Continue IV vancomycin and IV Zosyn. DC IV fluids. 09/13 sepsis has clinically resolved. Continue IV Zosyn. (2) Encephalopathy acute ICD Code: G93.40 - Encephalopathy, unspecified Status: Acute Plan: Head CT negative. Likely metabolic secondary to sepsis. Monitor neurological status in order neurochecks. 09/11 appreciate neurology recommendations. Patient having some hallucinations which are commonly seen in patients with Parkinson's. However, patient is more awake and alert, IV encephalopathy is resolving. 09/12 Will resume correct dose of Sinemet since daughter brought the correct dosage. Encephalopathy is improving however patient is still having hallucinations. 09/13 Seems more stable since patient is not showing evident tremors today. Continue Sinemet. (3) Aspiration pneumonia ICD Code: J69.0 - Pneumonitis due to inhalation of food and vomit Status: Acute Plan: Chest x-ray on admission did not show any acute disease. However, repeat chest x-ray obtained today on 09/10 shows a right lower lobe infiltrate. 09/11 Check speech therapy consult for Swallow evaluation. 09/12 . Recommends mechanical soft food with thin liquids. (4) Acute hypoxemic respiratory failure ICD Code: J96.01 - Acute respiratory failure with hypoxia Plan: The patient is currently on nasal cannula but requiring 4 L nasal cannula. Improving - down to 3 liters nasal canula. Continue supplemental oxygen to keep oxygen saturation more than 92%. Wean oxygen as tolerated. (5) LISA (acute kidney injury) ICD Code: N17.9 - Acute kidney failure, unspecified Plan: Creatinine on admission was 1.63, but do not have any previous labs to compare with. Creatinine now is trending down to 1.39. 09/11 I suspect prerenal septemia. Creatinine is slightly up from 1.39-1.44. Will check renal ultrasound and will continue IV fluids for now. We'll also order a bladder scan to measure the postvoid residual volume. 09/12 ultrasound did not show any obstruction or other acute abnormality of either kidney. There is a focal masslike area posteriorly of the urinary bladder. Simple, benign cyst of the left kidney. We'll order a urology consultation. 09/13 creatinine is trending down. LISA resolving. Encourage oral intake of fluids. (6) Anemia ICD Code: D64.9 - Anemia, unspecified Plan: Check iron studies. Bilirubin normal. Hemoglobin low possibly secondary to sepsis and acute infection. Monitor hemoglobin. 09/11 Hemoglobin stable. 09/12 iron studies consistent with anemia of chronic disease. Continue to monitor hemoglobin stable. (7) Febrile illness ICD Code: R50.9 - Fever, unspecified Status: Acute Plan: The patient is having elevated temperatures after temperature of 102.9. Tylenol for fever 09/11 fever resolved. Assessment and Plan DVT prophylaxis: SCDs, continue Lovenox subcutaneous. Discharge Planning Continue to monitor in the medical floor. Discharge pending clinical improvement. Patient will need rehab. Problem Qualifiers (1) Sepsis: Qualified Codes: A41.9 - Sepsis, unspecified organism (2) Aspiration pneumonia: Qualified Codes: J69.0 - Pneumonitis due to inhalation of food and vomit (3) Anemia: Qualified Codes: D64.9 - Anemia, unspecified Mainor Adan MD Sep 13, 2017 14:28
--- NOTE | 2017-09-13 18:18 | PD.CONS ---
HPI Service Urology Consult Requested By Reason for Consult ? Bladder Mass Primary Care Physician Unknown Diagnosis: History of Present Illness 76 yo male h/o Parkinson's Disease admitted with AMS, sepsis due to Aspiration Pneumonia. Renal/Bladder U/S was done due to elevated Creatinine which suggested possible mass in the bladder. Urology was consulted. Patient is currently confused and is a poor historian. The majority of the history is obtained from his daughter. Per his daughter, he has never seen a Urologist in the past. He leaks urine but she has not known of him having any blood in his urine. Denies h/o kidney stones. Denies prior surgery on his bladder or prostate. He denies pain. Review of Systems ROS Limitations: Clinical Condition, Altered Mental Status (confused, encephalopathic) Past Family Social History Past Medical History Parkinson's Disease, Urinary Incontinence, HTN, GERD, CAD Past Surgical History Right knee replacement Reported Medications Sinemet, Vanco, Zosyn, Norvasc, Doxazosin Allergies: Coded Allergies: No Known Allergies (Unverified Allergy, Unknown, 09/09/17) Family History No record of urolithiasis or malignancies. Social History Denies alcohol or tobacco use; uses Cannibis Physical Exam Vital Signs Date Time Temp Pulse Resp B/P (MAP) Pulse Ox O2 Delivery O2 Flow Rate FiO2 09/13/17 16:05 97.9 70 21 126/70 (88) 94 09/13/17 16:00 74 09/13/17 12:06 97.9 42 21 131/97 (108) 94 09/13/17 12:00 112 09/13/17 08:04 97.2 88 22 188/99 (128) 96 09/13/17 08:00 87 09/13/17 07:25 Nasal Cannula 3.00 09/13/17 04:01 87 09/13/17 03:42 98.2 74 20 170/84 (112) 95 09/13/17 00:25 97.6 93 19 193/93 (126) 96 09/12/17 23:50 96 09/12/17 20:20 98.0 92 19 203/95 (131) 96 09/12/17 20:02 95 09/12/17 19:46 Nasal Cannula 3.00 Physical Exam GENERAL: Resting comfortably in bed. SKIN: No rashes, ecchymoses or lesions. Cool and dry. HEAD: Atraumatic. Normocephalic. No temporal or scalp tenderness. EYES: Pupils equal round and reactive. Extraocular motions intact. No scleral icterus. No injection or drainage. ENT: Nose without bleeding, purulent drainage or septal hematoma. Throat without erythema, tonsillar hypertrophy or exudate. Uvula midline. Airway patent. NECK: Trachea midline. No JVD or lymphadenopathy. Supple, nontender, no meningeal signs. CARDIOVASCULAR: Regular rate and rhythm without murmurs, gallops, or rubs. RESPIRATORY: Clear to auscultation. Breath sounds equal bilaterally. No wheezes , rales, or rhonchi. GASTROINTESTINAL: Abdomen soft, non-tender, nondistended. No hepato-splenomegaly , or palpable masses. No guarding. GENITOURINARY: phallus normal; testes without mass MUSCULOSKELETAL: Extremities without clubbing, cyanosis, or edema. No joint tenderness, effusion, or edema noted. No calf tenderness. Negative Homans sign bilaterally. NEUROLOGICAL: confused, having tremors. Cranial nerves II through XII intact. Motor and sensory grossly within normal limits. Speech slow. Lab results reviewed: Yes (Creatinine normal) Laboratory Tests Test 09/13/17 07:35 Blood Urea Nitrogen 11 Creatinine 1.24 Random Glucose 92 Calcium Level 8.2 Phosphorus Level 2.9 Sodium Level 141 Potassium Level 3.6 Chloride Level 108 Carbon Dioxide Level 24.0 Anion Gap 9 Estimat Glomerular Filtration Rate 57 Date/Time Source Procedure Growth Status 09/10/17 02:15 Blood Peripheral Aerobic Blood Culture - Preliminary NO GROWTH IN 3 DAYS Resulted 09/10/17 02:15 Blood Peripheral Anaerobic Blood Culture - Preliminary NO GROWTH IN 3 DAYS Resulted 09/09/17 15:57 Cerebral Spinal Fluid Lumbar Puncture Gram Stain - Final Complete 09/09/17 15:57 Cerebral Spinal Fluid Lumbar Puncture CSF Culture - Final NO GROWTH IN 72 HOURS Complete 09/09/17 13:00 Nasal Aspirate Influenza Types A,B Antigen (ELIF) - Final NEGATIVE FOR FLU A AND B ANTIGEN.... Complete Result Diagram: 09/12/17 0515 09/13/17 0735 Personally reviewed images: Yes (possible small bladder mass posterior portion of bladder) Imaging Last Impressions Renal Ultrasound 09/11/17 0000 Signed Impressions: Service Date/Time: Monday, September 11, 2017 19:34 - CONCLUSION: 1. No obstruction or other acute abnormality of either kidney. 2. Focal masslike area posteriorly of the urinary bladder and correlation with direct visualization recommended. 3. Simple, benign cyst of the left kidney. Rashad Celis MD Chest X-Ray 09/10/17 0000 Signed Impressions: Service Date/Time: Sunday, September 10, 2017 08:33 - CONCLUSION: Patchy mild right perihilar pulmonary opacity indicating atelectasis versus mild consolidation. Chente Lo MD Head CT 09/09/17 1245 Signed Impressions: Service Date/Time: Saturday, September 09, 2017 13:32 - CONCLUSION: No acute intracranial findings. Rashad Morgan MD Lumbar Puncture Fluoroscopy 09/09/17 0000 Signed Impressions: Service Date/Time: Saturday, September 09, 2017 15:25 - CONCLUSION: Uncomplicated fluoroscopically guided lumbar puncture. Rashad Morgan MD Assessment and Plan Assessment and Plan 76 yo male with Parkinson's Disease with possible bladder mass found on Renal/ Bladder Ultrasoun -Conservative management at this time -Cystoscopy as outpatient -Thanks for consult. Please call with any questions. Discussed Condition With Daughter AndrewCarlos Vick HARRELL Sep 13, 2017 18:18
[2017-09-13] MEDS: ENOXAPARIN SODIUM 40 MG/0.4 ML SYRINGE SQ SCH (21:52)
[2017-09-14] VITALS: BP 163/82; PULSE 75; PULSE 82; RESP 18; TEMP 97.7; O2SAT 94
[2017-09-14] MEDS: CARBIDOPA/LEVODOPA 25 MG/100 MG TAB PO SCH ×3 (01:26→09:46)
[2017-09-14] MEDS: SODIUM CHLOR 0.9% 1000 ML INJ 1,000 ML IV SCH (02:00)
[2017-09-14 04:00] VITALS: BP 158/80; PULSE 69; PULSE 73; RESP 20; TEMP 98; O2SAT 94
[2017-09-14] MEDS: PIPERACIL-TAZO 4.5 GM PREMIX 100 ML IV SCH ×2 (05:27→14:00)
[2017-09-14 07:46] LABS: CSF NEUTROPHILS 100 %
[2017-09-14 08:30] VITALS: BP 186/92
[2017-09-14 08:56] VITALS: PULSE 105; RESP 20; TEMP 98.2; O2SAT 97
[2017-09-14] MEDS: DOCUSATE SODIUM 50 MG/SENNA 8.6 MG TAB PO SCH (09:00)
[2017-09-14] MEDS: LOSARTAN 25 MG TAB PO SCH (09:45)
[2017-09-14] MEDS: hydrALAZINE HCL 100 MG TAB PO SCH (09:46)
[2017-09-14] MEDS: DOXAZOSIN MESYLATE 2 MG TAB PO SCH (09:46)
[2017-09-14] MEDS: SODIUM CHLORIDE 0.9% FLUSH 10 ML FLUSH IV FLUSH SCH (09:46)
--- NOTE | 2017-09-14 11:25 | HHI.DCPOC ---
Discharge Care Plan Diagnosis: (1) Sepsis (2) Acute hypoxemic respiratory failure (3) LISA (acute kidney injury) (4) Encephalopathy acute (5) Aspiration pneumonia (6) Anemia Goals to Promote Your Health * To prevent worsening of your condition and complications * To maintain your health at the optimal level Directions to Meet Your Goals Take your medications as prescribed Follow your dietary instruction Follow activity as directed Keep your appointments as scheduled Take your immunizations and boosters as scheduled If your symptoms worsen call your PCP, if no PCP go to Urgent Care Center or Emergency Room Smoking is Dangerous to Your Health. Avoid second hand smoke Call the 24-hour hour crisis hotline for domestic abuse at Mainor Adan MD Sep 14, 2017 11:25
[2017-09-14 12:31] VITALS: BP 148/76; PULSE 56; RESP 19; TEMP 97.9; O2SAT 93
[2017-09-14] MEDS ORDERED: CARBIDOPA/LEVODOPA 25 MG/100 MG TAB PO SCH ×2 (13:00)
[2017-09-14] MEDS ORDERED: CARD2TAB PO (13:21)
[2017-09-14] MEDS ORDERED: AUGM875T3 PO (13:21)
--- NOTE | 2017-09-14 13:24 | HHI.DS ---
Discharge Summary Admission Date Sep 09, 2017 at 18:59 Discharge Date: Sep 14, 2017 Admitting Diagnosis (1) Sepsis ICD Code: A41.9 - Sepsis, unspecified organism Status: Resolved (2) Encephalopathy acute ICD Code: G93.40 - Encephalopathy, unspecified Status: Acute (3) Aspiration pneumonia ICD Code: J69.0 - Pneumonitis due to inhalation of food and vomit Status: Acute (4) Acute hypoxemic respiratory failure ICD Code: J96.01 - Acute respiratory failure with hypoxia (5) LISA (acute kidney injury) ICD Code: N17.9 - Acute kidney failure, unspecified (6) Anemia ICD Code: D64.9 - Anemia, unspecified (7) Febrile illness ICD Code: R50.9 - Fever, unspecified Status: Acute Procedures none Brief History - From Admission 76-year-old male with a past medical history significant for hypertension and Parkinson's disease was brought to the emergency department by his for evaluation of altered mental status. The patient's reports that he became disoriented and confused starting on Tuesday. She states he had visual hallucinations and believed that he saw a cow in the front yard. The patient's condition gradually worsened until this morning his found him surrounded by closets and worse that he had emptied out and thrown everything on the floor. She states he could not tell her what he was looking for why he was doing this. She states he did not know where he was or what year it was. She reports he had a fever to 102 axillary at home this morning. She reports he has had a cough that was severe yesterday but has since improved. Vital signs on arrival: Temperature 102.8, pulse 70, respiratory rate 24, BP 124/78, pulse ox 90% on room air. Head CT negative for acute process. Chest x-ray negative. No leukocytosis. Ammonia mildly elevated at 35. CBC/BMP: 09/12/17 0515 09/13/17 0735 Significant Findings Laboratory Tests Test 09/12/17 05:15 09/12/17 17:07 09/13/17 07:35 Red Blood Count 3.68 MIL/MM3 (4.50-5.90) Hemoglobin 11.2 GM/DL (13.0-17.0) Hematocrit 32.2 % (39.0-51.0) Neutrophils (%) (Auto) 77.9 % (16.0-70.0) Lymphocytes # (Auto) 0.6 TH/MM3 (1.0-4.8) Creatinine 1.46 MG/DL (0.60-1.30) Albumin 2.9 GM/DL (3.4-5.0) Calcium Level 8.4 MG/DL (8.5-10.1) 8.2 MG/DL (8.5-10.1) Phosphorus Level 2.4 MG/DL (2.5-4.9) Alanine Aminotransferase (ALT/SGPT) 8 U/L (12-78) Chloride Level 108 MEQ/L (98-107) 108 MEQ/L (98-107) Estimat Glomerular Filtration Rate 47 ML/MIN (>89) 57 ML/MIN (>89) Vancomycin Level Trough 13.1 MCG/ML (5.0-10.0) PE at Discharge GENERAL: male lying in bed, Awake and alert, nad AAOx2 person and date SKIN: No rashes, ecchymoses or lesions. Cool and dry. HEAD: Atraumatic. Normocephalic. No temporal or scalp tenderness. EYES: Pupils equal round and reactive. Extraocular motions intact. No scleral icterus. No injection or drainage. ENT: Nose without bleeding, purulent drainage or septal hematoma. Throat without erythema, tonsillar hypertrophy or exudate. Uvula midline. Airway patent. NECK: Trachea midline. No JVD or lymphadenopathy. Supple, nontender, no meningeal signs. Full range of motion of the neck without pain. CARDIOVASCULAR: Regular rate and rhythm without murmurs, gallops, or rubs. RESPIRATORY: CTA BL. GASTROINTESTINAL: Abdomen soft, non-tender, nondistended. No hepato-splenomegaly , or palpable masses. No guarding. MUSCULOSKELETAL: Extremities without clubbing, cyanosis, or edema. No joint tenderness, effusion, or edema noted. No calf tenderness. NEUROLOGICAL: Awake and alert. Cranial nerves II through XII intact. Motor and sensory grossly within normal limits. Five out of 5 muscle strength in all muscle groups. Normal speech. Lip and hand tremor. A&O 3. Pt Condition on Discharge: Stable Discharge Disposition: Disch w/ Home Health Serv Discharge Time: > 30 minutes Discharge Instructions DIET: Follow Instructions for: Heart Healthy Diet Activities you can perform: Regular-No Restrictions, See Additionl Instruction Other Activity Instructions: out of bed with assitance. follow up physical therapy recommendations Follow up Referrals: PCP Follow-up - 1 Week New Medications: Amoxicillin-Clavulanate (Augmentin) 875-125 Mg Tab 1 TAB PO BID for Infection, #20 TAB 0 Refills Doxazosin (Cardura) 2 Mg Tab 2 MG PO DAILY for Blood Pressure Management, #31 TAB Continued Medications: Amlodipine (Amlodipine) 10 Mg Tab 10 MG PO DAILY for Blood Pressure Management, TAB 0 Refills Aspirin (Aspirin) 81 Mg Chew 81 MG CHEW DAILY, TAB 0 Refills Carbidopa-Levodopa (Carbidopa-Levodopa) 25-100 Mg Tab 2 TAB PO Q3HR for Parkinson Disease Mgmt, TAB 0 Refills Pt instructed by Dr. Herring to take 2 - 100mg Tablets @ 7:00am 11:30am 2:30pm 5:30pm Hydralazine (Hydralazine) 100 Mg Tab 100 MG PO BID for Blood Pressure Management, TAB 0 Refills Take with meals Losartan (Losartan) 25 Mg Tab 25 MG PO DAILY for Blood Pressure Management, TAB 0 Refills Meloxicam (Meloxicam) 7.5 Mg Tab 7.5 MG PO DAILY for Arthritis Pain, TAB 0 Refills Discontinued Medications: Cyclobenzaprine (Flexeril) 5 Mg Tab 5 MG PO HS for Muscle Spasm, TAB 0 Refills Mainor Adan MD Sep 14, 2017 13:24
--- NOTE | 2017-09-14 15:49 | HHI.FF ---
Face to Face Verification Diagnosis: (1) Acute hypoxemic respiratory failure (2) Febrile illness (3) LISA (acute kidney injury) (4) Encephalopathy acute (5) Sepsis (6) Aspiration pneumonia (7) Anemia Physical Therapy Order: Improve ambulation, Strength and gait training Home Health Nursing Order: Nursing assessment with vital signs I have seen patient Oneil Zafar on 09/14/17. My clinical findings support the need for the requested home health care services because: Deconditioned w/ increased weakness High risk of falls I certify that my clinical findings support that this patient is homebound because: Unsteady gait/balance Unsafe to leave home unassisted Unable to use public transportation Mainor Adan MD Sep 14, 2017 15:49
[2017-09-14] MEDS ORDERED: PHARMACY ORDERED LAB ONE (17:45)
== END 2017-09-14 17:17 | disposition home health service (06) | DRG 871 ==
LOC: NEPE 12:13 → NEDA 18:59 → N04B 20:30
PROVIDERS: ADMIT Hospitalist; ATTEND Hospitalist
PROC: 009U3ZX Drainage of Spinal Canal, Percutaneous Approach, Diagnostic (ICD-10-PCS; principal; 2017-09-09)
DX: A41.9 Sepsis, unspecified organism (principal); J69.0 Pneumonitis due to inhalation of food and vomit; J96.01 Acute respiratory failure with hypoxia; G93.41 Metabolic encephalopathy; N17.9 Acute kidney failure, unspecified; G20 Parkinson's disease; F02.80 Dementia in other diseases classified elsewhere, unspecified severity, without behavioral disturbance, psychotic disturbance, mood disturbance, and anxiety; M19.90 Unspecified osteoarthritis, unspecified site; I10 Essential (primary) hypertension; K21.9 Gastro-esophageal reflux disease without esophagitis; Z96.651 Presence of right artificial knee joint; I25.10 Atherosclerotic heart disease of native coronary artery without angina pectoris; R32 Unspecified urinary incontinence; R44.1 Visual hallucinations; D63.8 Anemia in other chronic diseases classified elsewhere; N28.1 Cyst of kidney, acquired; N32.9 Bladder disorder, unspecified; Z87.891 Personal history of nicotine dependence
CPT/HCPCS: 62270; 70450; 71045; 76775; 77003; 80048; 80053; 80202; 80307; 81001; 82140; 82550; 82552; 82728; 82945; 82948; 83540; 83550; 83605; 83735; 84100; 84157; 84443; 84484; 85025; 85610; 85730; 87040; 87070; 87205; 87529; 87804; 89051; 93005; 96361; 96365; 96366; 96367; 96368; J0133; J0696; J1650; J2543; J3370; J7030; J7040; P9612